=== PATIENT | female | born 1995 | race Caucasian/White ===

== ENCOUNTER 2018-03-21 17:41 | Emergency (ER) | payer OTHER ==
[2018-03-21] MEDS ORDERED: ONDANSETRON 4 MG/2 ML VIAL IVPB ONE (17:51)
[2018-03-21] MEDS ORDERED: SODIUM CHLORIDE 1,000 ML IV STA ×2 (17:51→22:14)
--- NOTE | 2018-03-21 17:51 | PDOC ---
Rapid Medical Evaluation Medical Evaluation: Allergies Allergy/AdvReac Type Severity Reaction Status Date / Time No Known Allergies Allergy Verified 02/18/16 06:00 I have performed a brief in-person evaluation of this patient. The patient presents with a chief complaint of: c/o upper abdominal pain x 1 week along with NBNB emesis. Went to [facility] a few days ago to get evaluated and was given Pepcid, without allevation of sxs. Denies diarrhea Pertinent physical exam findings: In NAD, abdomen soft, ND, NT I have ordered the following: Labs, IVF, zofran The patient will proceed to the ED for further evaluation. 03/21/18 17:49
[2018-03-21 17:53] VITALS: BP 121/65; PULSE 68; TEMP 98.2; BMI 31.8
[2018-03-21 19:47] LABS: BASO % 0.2 % (0-2.0); EOS % 0.7 % (0-4.5); HEMATOCRIT 42.2 % (32.4-45.2); HEMOGLOBIN 14.4 GM/dL (10.7-15.3); LYMPH % 11.9 % (8-40); MCH 27.5 pg (25.7-33.7); MCHC 34.1 g/dl (32.0-36.0); MEAN CELL VOLUME 80.5 fl (80-96); MEAN PLT VOLUME 10.2 fl (7.5-11.1); MONO % 5.8 % (3.8-10.2); NEUT % 81.4 % (42.8-82.8); PLATELET COUNT 225 K/MM3 (134-434); RBC 5.24 M/mm3 (3.60-5.2); RDW 14.6 % (11.6-15.6); WHITE BLOOD COUNT 9.3 K/mm3 (4.0-10.0)
[2018-03-21 20:18] LABS: ALBUMIN 4.1 g/dl (3.4-5.0); ALK PHOS 117 U/L (45-117); ANION GAP 5 MMOL/L (8-16); BILIRUBIN,TOTAL 0.8 mg/dL (0.2-1); BLOOD UREA NITROGEN 11 mg/dL (7-18); CALCIUM 8.6 mg/dL (8.5-10.1); CHLORIDE 105 mmol/L (98-107); CO2 26 mmol/L (21-32); CREATININE 0.6 mg/dL (0.55-1.3); GLUCOSE,RANDOM 86 mg/dL (74-106); POTASSIUM 4.6 mmol/L (3.5-5.1); SGOT/AST 32 U/L (15-37); SGPT/ALT 20 U/L (13-61); SODIUM 136 mmol/L (136-145); TOT PROT 7.8 g/dl (6.4-8.2)
[2018-03-21] MEDS ORDERED: ONDANSETRON 4 MG/2 ML VIAL ONE (20:41)
[2018-03-21 20:46] LABS: URINE APPEARANCE CLEAR; URINE BILIRUBIN NEGATIVE (<2.0 mg/dL); URINE COLOR DKYELLOW; URINE GLUCOSE (UA) NEGATIVE (NEGATIVE); URINE KETONE 1+ (NEGATIVE); URINE LEUK ESTERASE NEGATIVE (NEGATIVE); URINE NITRITE NEGATIVE (NEGATIVE); URINE PROTEIN 1+ (NEGATIVE); URINE UROBILINOGEN 4.0 E.U/dl mg/dL (0.2-1.0)
[2018-03-21 20:48] LABS: HCG,QUALITATIVE URINE Negative
[2018-03-21 20:52] LABS: EPI CELLS FEW /HPF (FEW); URINE MUCUS MANY
[2018-03-21] MEDS ORDERED: LIDOCAINE VISCOUS 2% ORAL/TOP 20 ML UNIT-DOSE CUP PO ONE (21:13)
[2018-03-21] MEDS ORDERED: MAG HYDROX/AL HYDROX/SIMETH 30 ML UNIT-DOSE CUP PO ONE (21:13)
[2018-03-21] MEDS ORDERED: PANTOPRAZOLE 40 MG TABLET (FP) PO ONE (21:14)
[2018-03-21] MEDS ORDERED: LIDOCAINE VISCOUS 2% ORAL/TOP 20 ML UNIT-DOSE CUP ONE (21:16)
[2018-03-21] MEDS ORDERED: PANTOPRAZOLE 40 MG TABLET (FP) ONE (21:16)
[2018-03-21] MEDS ORDERED: MAG HYDROX/AL HYDROX/SIMETH 30 ML UNIT-DOSE CUP ONE (21:16)
--- NOTE | 2018-03-21 21:19 | PDOC ---
History of Present Illness - General Chief Complaint: Pain, Acute Stated Complaint: UPPER ABDOMINAL PAIN Time Seen by Provider: 03/21/18 20:59 History Source: Patient Exam Limitations: No Limitations - History of Present Illness Travel History: No Initial Comments: 03/21/18 21:15 HISTORY OF PRESENT ILLNESS: This is a 23-year-old woman who denies significant medical history presents emergency department for evaluation of upper abdominal pain which worsens in the middle of the night and steadily improves throughout the day. Patient reports being seen at another hospital was given Pepcid with no relief of symptoms. Patient states currently her pain is 0/10 but when the pain comes on is 10/10. Patient describes the feeling as a tightness which slowly improves with movement and all laying in hot baths. She denies any aggravating factors. She denies nausea, vomiting, dysuria, hematuria, vaginal discharge, vaginal bleeding, constipation, diarrhea or rectal bleeding. No recent travel or sick contacts. PAST MEDICAL HISTORY: Denies past medical history SURGICAL HISTORY: Denies ALLERGIES: No known drug allergies REVIEW OF SYSTEMS General/Constitutional: Denies fever or chills. Denies weakness, weight change. HEENT: Denies change in vision. Denies ear pain or discharge. Denies sore throat. Cardiovascular: Denies chest pain or shortness of breath. Respiratory: Denies cough, wheezing, or hemoptysis. Gastrointestinal: Denies nausea, vomiting, diarrhea or constipation. Denies rectal bleeding. Upper abdominal pain. Genitourinary: Denies dysuria, frequency, or change in urination. Musculoskeletal: Denies joint or muscle swelling or pain. Denies neck or back pain. Skin and breasts: Denies rash or easy bruising. Neurologic: Denies headache, vertigo, loss of consciousness, or loss of sensation. Psychiatric: Denies depression or anxiety. Endocrine: Denies increased thirst. Denies abnormal weight change. Hematologic/Lymphatic: Denies anemia, easy bleeding, or history of blood clots. Allergic/Immunologic: Denies hives or skin allergy. Denies latex allergy. PHYSICAL EXAM General Appearance: Well-appearing, appropriately dressed. No apparent distress , no intoxication. HEENT: EOMI, PERRLA, normal ENT inspection, normal voice, TMs normal, pharynx normal. No conjunctival pallor. No photophobia, scleral icterus. Neck: Supple. Trachea midline. No tenderness, rigidity, carotid bruit, stridor , lymphadenopathy, or thyromegaly. Respiratory/Chest: Lungs CTAB. No shortness of breath, chest tenderness, respiratory distress, accessory muscle use. No crackles, rales, rhonchi, stridor , wheezing, dullness Cardiovascular: RRR. S1, S2. No JVD, murmur, bradycardia, tachycardia. Vascular Pulses: Dorsalis-Pedis (R): 2+, Dorsalis-Pedis (L): 2+ Gastrointestinal/Abdominal: Normal bowel sounds. Abdomen soft, non-distended. No tenderness or rebound tenderness. No organomegaly, pulsatile mass, guarding, hernia, hepatomegaly, splenomegaly. Lymphatic: No adenopathy, tenderness. Musculoskeletal/Extremities: Normal inspection. FROM of all extremities, normal capillary refill. Pelvis Stable. No CVA tenderness. No tenderness to extremities, pedal edema, swelling, erythema or deformity. Integumentary: Appropriate color, dry, warm. No cyanosis, erythema, jaundice or rash Neurologic: clinical engineer II-XII intact. Fully oriented, alert. Appropriate mood/affect. Motor strength 5/5. No appreciable EOM palsy, facial droop or sensory deficit. Past History - Past Medical History Allergies/Adverse Reactions: Allergies Allergy/AdvReac Type Severity Reaction Status Date / Time No Known Allergies Allergy Verified 03/21/18 17:49 Home Medications: Ambulatory Orders Vit/Iron Fum/Folic AC [ Tablet] 1 each PO DAILY 03/09/15 Iron 1 tab PO DAILY 02/18/16 Ibuprofen [Motrin -] 600 mg PO QID #28 tablet 02/19/16 Ondansetron [Zofran Odt -] 4 mg SL TID #21 od.tablet 03/21/18 Pantoprazole Sodium [Protonix -] 40 mg PO DAILY #30 tablet.ec 03/21/18 Asthma: No Cancer: No Cardiac Disorders: No COPD: No Diabetes: No HTN: No Seizures: No Thyroid Disease: No - Immunization History Immunization Up to Date: Yes - Suicide/Smoking/Psychosocial Hx Smoking History: Current every day smoker Have you smoked in the past 12 months: No Number of Cigarettes Smoked Daily: 3 Information on smoking cessation initiated: No Hx Alcohol Use: No Drug/Substance Use Hx: No Hx Substance Use Treatment: No *Physical Exam - Vital Signs Last Vital Signs Temp Pulse Resp BP Pulse Ox 98.2 F 68 16 121/65 97 03/21/18 17:50 03/21/18 17:50 03/21/18 17:50 03/21/18 17:50 03/21/18 17:50 Moderate Sedation - Procedure Monitoring Vital Signs: Procedure Monitoring Vital Signs Temperature 98.2 F 03/21/18 17:50 Pulse Rate 68 03/21/18 17:50 Respiratory Rate 16 03/21/18 17:50 Blood Pressure 121/65 03/21/18 17:50 O2 Sat by Pulse Oximetry (%) 97 03/21/18 17:50 ED Treatment Course - LABORATORY CBC & Chemistry Diagram: 03/21/18 19:33 03/21/18 19:33 - ADDITIONAL ORDERS Additional order review: Laboratory Results 03/21/18 03/21/18 19:33 19:33 Sodium 136 Potassium 4.6 Chloride 105 Carbon Dioxide 26 Anion Gap 5 L BUN 11 Creatinine 0.6 Creat Clearance w eGFR > 60 Random Glucose 86 Calcium 8.6 Total Bilirubin 0.8 AST 32 ALT 20 Alkaline Phosphatase 117 Total Protein 7.8 Albumin 4.1 Urine Color Dkyellow Urine Appearance Clear Urine pH 6.0 Ur Specific [place] 1.029 Urine Protein 1+ H Urine Glucose (UA) Negative Urine Ketones 1+ H Urine Blood Negative Urine Nitrite Negative Urine Bilirubin Negative Urine Urobilinogen 4.0 e.u/dl H Ur Leukocyte Esterase Negative Urine WBC (Auto) 7 Urine RBC (Auto) 4 Ur Epithelial Cells Few Urine Mucus Many Urine HCG, Qual Negative 03/21/18 19:33 RBC 5.24 H MCV 80.5 MCHC 34.1 RDW 14.6 D MPV 10.2 Neutrophils % 81.4 Lymphocytes % 11.9 D Monocytes % 5.8 Eosinophils % 0.7 Basophils % 0.2 - Medications Given in the ED: ED Medications Discontinued Medications Generic Name Dose Route Start Last Admin Trade Name Freq PRN Reason Stop Dose Admin Sodium Chloride 1,000 mls @ 1,000 mls/hr 03/21/18 17:51 03/21/18 20:46 Normal Saline - IV 03/21/18 18:50 1,000 mls/hr ASDIR STA Administration Ondansetron HCl 4 mg 03/21/18 17:51 03/21/18 20:46 Zofran Injection IVPB 03/21/18 17:52 4 mg ONCE ONE Administration Medical Decision Making - Medical Decision Making 03/21/18 21:18 A/P: 23-year-old female with upper abdominal pain for one week Lungs clear to auscultation bilaterally RRR. No murmur, rub or gallop noted Normoactive bowel sounds Abdomen soft nontender nondistended. No guarding noted No CVA tenderness I symptoms worsen at night while patient is lying down this is most likely a gastritis. Patient has had minimal relief from Pepcid. I will give the patient Maalox, Viscous Lidocaine and Protonix here reevaluate. Laboratory testing performed a rapid medical evaluation is unremarkable. 03/21/18 22:28 Patient has been unable to tolerate by mouth's and is having worsening pain at this time. Patient encouraged to stay for IV fluids and continued assessment but is refusing at this time. The patient insists on leaving the emergency dept and is signing out against medical advice. The patient understands the risks and complications that may result from the refusal of medical care and admission which includes cardiac arrest, severe infection, dehydration, myocardial infarction, arrhythmias, stroke, respiratory failure, electrolyte derangements, coma, pancreatitis, liver failure, bleeding, perforation, obstruction, intra abdominal infection, coma, severe disability and . The patient has the mental capacity of understanding the risks of refusing care and is capable of making an informed decision. The patient was instructed to return to the emergency department should she change her mind regarding medical care or should her condition worsen. The patient signed the Against Medical Advice form. *DC/Admit/Observation/Transfer Diagnosis at time of Disposition: Abdominal pain Qualifiers: Abdominal location: left upper quadrant Qualified Code(s): R10.12 - Left upper quadrant pain - Discharge Dispostion Disposition: AGAINST MEDICAL ADVICE Condition at time of disposition: Fair Decision to Admit order: No - Prescriptions Prescriptions: Ondansetron [Zofran Odt -] 4 mg SL TID #21 od.tablet Pantoprazole Sodium [Protonix -] 40 mg PO DAILY #30 tablet.ec - Referrals Referrals: Lencoh Pacheco [Primary Care Provider] - - Patient Instructions Additional Instructions: Rest, drink lots of fluids: Teas, water, soups Shannan andi, carbonated beverages for the bubbles May try peppermint teas Avoid heavy , spicy or fatty foods until symptoms have resolved Continue [id number] medications for symptomatic relief Tylenol or Motrin for fever and pain May use Zofran-one tablet dissolved on tongue as needed for nausea. May repeat times one every 8 hours Take Protonix 40mg daily. Follow up with your primary doctor next week. You are welcome to return to the ED at any time for continued evaluation. Followup with private physician in one to 2 days as needed Return to emergency department for worsened symptoms, fevers, dehydration - Post Discharge Activity
[2018-03-21] MEDS ORDERED: ONDANSETRON 4 MG/2 ML VIAL IVPUSH ONE (22:15)
[2018-03-21] MEDS ORDERED: FAMOTIDINE 20 MG/50 ML IVPB 20 MG/50 ML MG IVPB ONE (22:15)
== END 2018-03-21 22:35 | disposition left against medical advice (07) ==
LOC: JER 17:41
PROC: 3E033GC Introduction of Other Therapeutic Substance into Peripheral Vein, Percutaneous Approach (ICD-10-PCS; principal; 2018-03-21)
DX: R10.12 Left upper quadrant pain (principal)
CPT/HCPCS: 36415; 80053; 81003; 81015; 84703; 85025; 99282-25; J7030

== ENCOUNTER 2018-06-15 20:49 | Emergency (ER) | payer OTHER ==
[2018-06-15 20:57] VITALS: BP 108/60; PULSE 82; TEMP 98.4; BMI 36.4
[2018-06-15] MEDS ORDERED: KETOROLAC TROMETHAMINE 60 MG/2 ML VIAL IM ONE (21:33)
[2018-06-15] MEDS ORDERED: KETOROLAC TROMETHAMINE 60 MG/2 ML VIAL ONE (21:35)
--- NOTE | 2018-06-15 21:40 | PDOC ---
History of Present Illness - General Chief Complaint: Toothache Stated Complaint: RIGHT SIDE TOOTH PAIN Time Seen by Provider: 06/15/18 21:22 History Source: Patient Exam Limitations: Clinical Condition - History of Present Illness Initial Comments: 06/15/18 21:34 Patient with no significant past medical history present with complaint of pain and swelling to right side of lower tooth and gums. Patient reported having pain for 2 days now to right lower wisdom tooth and now started having swelling to the gums in the face. Denies fever, chills. Patient reported taking Motrin which helps with the pain a little bit but comes back. Timing/Duration: other (2 days) Past History - Past Medical History Allergies/Adverse Reactions: Allergies Allergy/AdvReac Type Severity Reaction Status Date / Time No Known Allergies Allergy Verified 03/21/18 17:49 Home Medications: Ambulatory Orders Vit/Iron Fum/Folic AC [ Tablet] 1 each PO DAILY 03/09/15 Iron 1 tab PO DAILY 02/18/16 Ibuprofen [Motrin -] 600 mg PO QID #28 tablet 02/19/16 Ondansetron [Zofran Odt -] 4 mg SL TID #21 od.tablet 03/21/18 Pantoprazole Sodium [Protonix -] 40 mg PO DAILY #30 tablet.ec 03/21/18 Amox-Tr/K Cl [Augmentin - 875Mg Tablet] 1 tab PO BID #14 tablet 06/15/18 Naproxen 500 mg PO BID PRN #20 tablet 06/15/18 Asthma: No Cancer: No Cardiac Disorders: No COPD: No Diabetes: No HTN: No Seizures: No Thyroid Disease: No - Immunization History Immunization Up to Date: Yes - Suicide/Smoking/Psychosocial Hx Smoking History: Current every day smoker Have you smoked in the past 12 months: No Number of Cigarettes Smoked Daily: 5 Information on smoking cessation initiated: Yes Hx Alcohol Use: No Drug/Substance Use Hx: No Hx Substance Use Treatment: No Review of Systems - Review of Systems Able to Perform ROS?: Yes Is the patient limited Bahamian proficient: No Constitutional: No: Chills, Fever HEENTM: Yes: Symptoms Reported, See HPI, Dental Problems. No: Eye Pain, Blurred Vision, Tearing, Recent change in vision, Double Vision, Cataracts, Ear Pain, Ocular Prothesis, Ear Discharge, Nose Pain, Nose Congestion, Tinnitus, Nose Bleeding, Hearing Loss, Throat Pain, Throat Swelling, Mouth Pain, Difficulty Swallowing, Mouth Swelling, Other Respiratory: No: Symptoms reported, See HPI, Cough, Orthopnea, Shortness of Breath, SOB with Exertion, SOB at Rest, Stridor, Wheezing, Productive cough, Hemoptysis, Other Cardiac (ROS): No: Symptoms Reported, See HPI, Chest Pain, Edema, Irregular Heart Rate, Lightheadedness, Palpitations, Syncope, Chest Tightness, Other ABD/GI: No: Nausea, Vomiting All Other Systems: Reviewed and Negative *Physical Exam - Vital Signs Last Vital Signs Temp Pulse Resp BP Pulse Ox 98.4 F 82 20 108/60 98 06/15/18 20:51 06/15/18 20:51 06/15/18 20:51 06/15/18 20:51 06/15/18 20:51 - Physical Exam Comments: 06/15/18 21:36 GENERAL: Well developed, well nourished. Awake and alert. No acute distress. HEENT: Mild tenderness to periodontal region of right lower premolars. Mild swelling to right side of face. No erythema to face. Normocephalic, atraumatic. PERRLA, EOMI. No conjunctival pallor. Sclera are non-icteric. Moist mucous membranes. NECK: Supple. Full ROM. CARDIOVASCULAR: Regular rate and rhythm. No murmurs, rubs, or gallops. Distal pulses are 2+ and symmetric. PULMONARY: No evidence of respiratory distress. Lungs clear to auscultation bilaterally. No wheezing, rales or rhonchi. ABDOMINAL: Soft. Non-tender. Non-distended. No rebound or guarding. No organomegaly. Normoactive bowel sounds. MUSCULOSKELETAL Normal range of motion at all joints. SKIN: Warm and dry. No erythema to skin of face. No evidence of cellulitis of face. Normal capillary refill. NEUROLOGICAL: Alert, awake, appropriate. Gait is normal without ataxia. PSYCHIATRIC: Cooperative. Good eye contact. Appropriate mood General Appearance: Yes: Nourished, Appropriately Dressed, Mild Distress Moderate Sedation - Procedure Monitoring Vital Signs: Procedure Monitoring Vital Signs Temperature 98.4 F 06/15/18 20:51 Pulse Rate 82 06/15/18 20:51 Respiratory Rate 20 06/15/18 20:51 Blood Pressure 108/60 06/15/18 20:51 O2 Sat by Pulse Oximetry (%) 98 06/15/18 20:51 Medical Decision Making - Medical Decision Making 06/15/18 21:37 Patient presented with complaint of 2 day history of right lower wisdom tooth pain and swelling to gums. Exam significant for tenderness to right back premolars with mild periodontal swelling. No evidence of cellulitis of face. Patient is stable for discharge on NSAIDs with dental follow-up. Toradol 60 mg IM given for pain *DC/Admit/Observation/Transfer Diagnosis at time of Disposition: Periodontitis, Pain in tooth - Discharge Dispostion Disposition: HOME Condition at time of disposition: Stable Decision to Admit order: No - Prescriptions Prescriptions: Amox-Tr/K Cl [Augmentin - 875Mg Tablet] 1 tab PO BID #14 tablet Naproxen 500 mg PO BID PRN #20 tablet PRN Reason: pain - Referrals Referrals: Lencho Pacheco [Primary Care Provider] - - Patient Instructions Printed Discharge Instructions: DI for Dental Pain Additional Instructions: Take prescribed medication as prescribed. Follow-up with dentist as soon as possible the next 2 days. - Post Discharge Activity
== END 2018-06-15 21:54 | disposition home or self-care (01) ==
LOC: JER 20:49 → JERFT 20:49
PROC: 3E0233Z Introduction of Anti-inflammatory into Muscle, Percutaneous Approach (ICD-10-PCS; principal; 2018-06-15)
DX: K05.30 Chronic periodontitis, unspecified (principal)
CPT/HCPCS: 96372; 99281-25

== ENCOUNTER 2018-11-03 11:20 | Emergency (ER) | payer OTHER ==
[2018-11-03 11:30] VITALS: TEMP 98.3; BMI 37.2
[2018-11-03] MEDS ORDERED: MAG HYDROX/AL HYDROX/SIMETH 30 ML UNIT-DOSE CUP PO ONE (11:46)
[2018-11-03] MEDS ORDERED: ONDANSETRON *ODT* 4 MG TABLET SL ONE (11:46)
[2018-11-03] MEDS ORDERED: ONDANSETRON *ODT* 4 MG TABLET ONE ×2 (12:03→12:34)
[2018-11-03] MEDS ORDERED: MAG HYDROX/AL HYDROX/SIMETH 30 ML UNIT-DOSE CUP ONE ×2 (12:03→12:34)
--- NOTE | 2018-11-03 12:21 | PDOC ---
History of Present Illness - General History Source: Patient Exam Limitations: Clinical Condition - History of Present Illness Initial Comments: 11/03/18 12:16 Patient with no significant past medical history LMP October 22 present with complaint of one-week history of epigastric pain and vomiting. Patient reported vomiting 4 times a day. Patient was seen in [facility] yesterday for same symptoms and reported blood work done was negative but was supposed to be sent home on medication but the medication was never sent. Patient reported no imaging was done in [facility] yesterday. Denies fever, chills, diarrhea, constipation. Patient reported epigastric pain as burning sensation epigastric region. Denies vaginal bleeding, urinary symptoms or any other symptoms Timing/Duration: 1 week <Igor Walton - Last Filed: 11/03/18 13:21> <Karina Grady - Last Filed: 11/08/18 07:30> - General Chief Complaint: Nausea/Vomiting Stated Complaint: NAUSEA / VOMITTING Time Seen by Provider: 11/03/18 11:32 Past History - Past Medical History Asthma: No Cancer: No Cardiac Disorders: No COPD: No Diabetes: No HTN: No Seizures: No Thyroid Disease: No - Immunization History Immunization Up to Date: Yes - Suicide/Smoking/Psychosocial Hx Smoking History: Current every day smoker Have you smoked in the past 12 months: No Number of Cigarettes Smoked Daily: 4 Information on smoking cessation initiated: No Hx Alcohol Use: No Drug/Substance Use Hx: No Hx Substance Use Treatment: No <Igor Walton - Last Filed: 11/03/18 13:21> <Karina Grady - Last Filed: 11/08/18 07:30> - Past Medical History Allergies/Adverse Reactions: Allergies Allergy/AdvReac Type Severity Reaction Status Date / Time No Known Allergies Allergy Verified 11/03/18 11:25 Home Medications: Ambulatory Orders Ondansetron [Zofran Odt -] 4 mg SL TID #21 od.tablet 11/03/18 Ondansetron [Zofran Odt -] 4 mg SL TID PRN #21 od.tablet 11/03/18 Pantoprazole Sodium [Protonix -] 40 mg PO DAILY #7 tablet.ec 11/03/18 Pantoprazole Sodium [Protonix] 40 mg PO DAILY #10 tablet. 11/03/18 Review of Systems - Review of Systems Able to Perform ROS?: Yes Is the patient limited Burundian proficient: No Constitutional: No: Chills, Fever, Malaise HEENTM: No: Symptoms Reported, Throat Pain, Difficulty Swallowing Respiratory: No: Symptoms reported Cardiac (ROS): No: Symptoms Reported ABD/GI: Yes: Symptoms Reported, See HPI, Nausea, Vomiting, Abdominal cramping ( epigastric). No: Abd. Pain w/ defecation, Blood Streaked Bowels, Constipated, Diarrhea, Difficulty Swallowing, Poor Appetite, Poor Fluid Intake, Rectal Bleeding : No: Symptoms Reported, Burning, Discharge, Frequency, Urgency Neurological: No: Symptoms reported, Headache, Weakness, Dizziness All Other Systems: Reviewed and Negative <Igor Walton - Last Filed: 11/03/18 13:21> *Physical Exam - Vital Signs Last Vital Signs Temp Pulse Resp BP Pulse Ox 98.3 F 78 18 110/53 L 98 11/03/18 11:21 11/03/18 11:21 11/03/18 11:21 11/03/18 11:21 11/03/18 11:21 - Physical Exam Comments: 11/03/18 12:19 YGENERAL: Well developed, well nourished. Awake and alert. No acute distress. HEENT: Normocephalic, atraumatic. PERRLA, EOMI. No conjunctival pallor. Sclera are non-icteric. Moist mucous membranes. Oropharynx is clear. NECK: Supple. Full ROM. CARDIOVASCULAR: Regular rate and rhythm. No murmurs, rubs, or gallops. Distal pulses are 2+ and symmetric. PULMONARY: No evidence of respiratory distress. Lungs clear to auscultation bilaterally. No wheezing, rales or rhonchi. ABDOMINAL: Soft. Mild epigastric tenderness on deep palpation. Non-distended. No rebound or guarding. No organomegaly. Normoactive bowel sounds. MUSCULOSKELETAL Normal range of motion at all joints. SKIN: Warm and dry. Normal capillary refill. No rashes. NEUROLOGICAL: Alert, awake, appropriate. Gait is normal without ataxia. PSYCHIATRIC: Cooperative. Good eye contact. Appropriate mood General Appearance: Yes: Nourished, Appropriately Dressed. No: Apparent Distress <Igor Walton - Last Filed: 11/03/18 13:21> - Vital Signs Last Vital Signs Temp Pulse Resp BP Pulse Ox 98.3 F 72 18 112/62 100 11/03/18 13:36 11/03/18 13:36 11/03/18 13:36 11/03/18 13:36 11/03/18 13:36 <Karina Grady - Last Filed: 11/08/18 07:30> ED Treatment Course - LABORATORY CBC & Chemistry Diagram: 11/03/18 12:00 11/03/18 12:00 - RADIOLOGY Radiology Studies Ordered: Category Date Time Status ABDOMEN US -LIMITED [US] Stat Ultrasound 11/03/18 11:48 Ordered <IsabelleIgor Bridges - Last Filed: 11/03/18 13:21> - LABORATORY CBC & Chemistry Diagram: 11/03/18 12:00 11/03/18 12:00 - ADDITIONAL ORDERS Additional order review: 11/03/18 12:00 RBC 5.15 MCV 81.2 MCHC 32.8 RDW 14.1 MPV 9.9 Neutrophils % 76.5 Lymphocytes % 16.5 D Monocytes % 6.0 Eosinophils % 0.4 Basophils % 0.6 - Medications Given in the ED: ED Medications Discontinued Medications Generic Name Dose Route Start Last Admin Trade Name Anuragq PRN Reason Stop Dose Admin Acetaminophen 975 mg 11/03/18 13:25 11/03/18 13:35 Tylenol - PO 11/03/18 13:26 975 mg ONCE ONE Administration Al Hydroxide/Mg Hydroxide 30 ml 11/03/18 11:46 11/03/18 12:45 Mylanta Oral Suspension - PO 11/03/18 11:47 30 ml ONCE ONE Administration Ondansetron HCl 4 mg 11/03/18 11:46 11/03/18 12:45 Zofran Odt - SL 11/03/18 11:47 4 mg ONCE ONE Administration Pantoprazole Sodium 40 mg 11/03/18 12:57 11/03/18 13:11 Protonix - PO 11/03/18 12:58 40 mg ONCE ONE Administration <Karina Grady - Last Filed: 11/08/18 07:30> Medical Decision Making - Medical Decision Making 11/03/18 12:17 Patient with no significant past medical history LMP October 22 present with complaint of one-week history of epigastric pain and vomiting. Patient reported vomiting 4 times a day. Patient was seen in [facility] yesterday for same symptoms and reported blood work done was negative but was supposed to be sent home on medication but the medication was never sent. Patient reported no imaging was done in [facility] yesterday. Denies fever, chills, diarrhea, constipation. Patient reported epigastric pain as burning sensation epigastric region. Denies vaginal bleeding, urinary symptoms or any other symptoms Exam significant for mild epigastric tenderness to deep palpation without guarding or rebound. Otherwise normal abdominal exam. Normal cardio and lung exam. Patient symptoms likely GERD versus cholecystitis versus gastritis. CBC, CMP and lipase labs ordered. UA urine hCG labs ordered. Abdominal ultrasound ordered to evaluate for cholecystitis. Zofran 4 mg sublingual ordered for nausea and Maalox 30 mL by mouth ordered for abdominal discomfort. Treat based on lab and imaging results 11/03/18 13:17 CBC and chemistry lab are unremarkable. Urine hCG negative. Abdominal ultrasound shows no acute pathology. Patient symptoms likely gastritis. Patient is stable for outpatient management on Zofran when necessary for vomiting and Protonix for gastritis with GI follow-up. Plan discussed with patient and patient agrees with plan and will follow up with GI <IsabelleIgor negrete - Last Filed: 11/03/18 13:21> *DC/Admit/Observation/Transfer - Discharge Dispostion Decision to Admit order: No <Igor Walton - Last Filed: 11/03/18 13:21> - Attestations Physician Attestion: I reviewed the case with the mid-level practitioner and agree with the mid- level practitioner's assessment, diagnosis and disposition. <Karina Grady - Last Filed: 11/08/18 07:30> Diagnosis at time of Disposition: Abdominal pain Qualifiers: Abdominal location: epigastric Qualified Code(s): R10.13 - Epigastric pain GERD (gastroesophageal reflux disease) Qualifiers: Esophagitis presence: without esophagitis Qualified Code(s): K21.9 - Gastro- esophageal reflux disease without esophagitis Nausea & vomiting Qualifiers: Vomiting type: unspecified Vomiting Intractability: non-intractable Qualified Code(s): R11.2 - Nausea with vomiting, unspecified - Discharge Dispostion Disposition: HOME Condition at time of disposition: Stable - Prescriptions Prescriptions: Ondansetron [Zofran Odt -] 4 mg SL TID PRN #21 od.tablet PRN Reason: nausea Ondansetron [Zofran Odt -] 4 mg SL TID #21 od.tablet Pantoprazole Sodium [Protonix -] 40 mg PO DAILY #7 tablet.ec Pantoprazole Sodium [Protonix] 40 mg PO DAILY #10 tablet.dr - Referrals Referrals: Hieu Lu DO [Staff Physician] - - Patient Instructions Printed Discharge Instructions: [place] Diet, DI for Gastritis Additional Instructions: Your lab and abdominal ultrasound is normal. Your symptoms likely caused by acid buildup. Take prescribed medication as prescribed. Increase fluid intake. Follow-up referred GI doctor if no improvement in 2 days
[2018-11-03 12:34] LABS: BASO % 0.6 % (0-2.0); EOS % 0.4 % (0-4.5); HEMATOCRIT 41.9 % (32.4-45.2); HEMOGLOBIN 13.7 GM/dL (10.7-15.3); LYMPH % 16.5 % (8-40); MCH 26.6 pg (25.7-33.7); MCHC 32.8 g/dl (32.0-36.0); MEAN CELL VOLUME 81.2 fl (80-96); MEAN PLT VOLUME 9.9 fl (7.5-11.1); NEUT % 76.5 % (42.8-82.8); PLATELET COUNT 238 K/MM3 (134-434); RBC 5.15 M/mm3 (3.60-5.2); RDW 14.1 % (11.6-15.6); WHITE BLOOD COUNT 10.4 K/mm3 (4.0-10.0)
[2018-11-03] MEDS ORDERED: PANTOPRAZOLE 40 MG TABLET (FP) PO ONE (12:57)
[2018-11-03 13:02] LABS: ALBUMIN 3.8 g/dl (3.4-5.0); BILIRUBIN,TOTAL 0.4 mg/dL (0.2-1); BLOOD UREA NITROGEN 10.6 mg/dL (7-18); CALCIUM 9.1 mg/dL (8.5-10.1); CREATININE 0.6 mg/dL (0.55-1.3); POTASSIUM 3.9 mmol/L (3.5-5.1); TOT PROT 7.6 g/dl (6.4-8.2)
[2018-11-03] MEDS ORDERED: PANTOPRAZOLE 40 MG TABLET (FP) ONE (13:08)
[2018-11-03] MEDS ORDERED: ACETAMINOPHEN 325 MG TABLET (FP) PO ONE (13:25)
[2018-11-03] MEDS ORDERED: ACETAMINOPHEN 325 MG TABLET (FP) ONE (13:31)
[2018-11-03 13:37] VITALS: BP 112/62; PULSE 72
== END 2018-11-03 13:37 | disposition home or self-care (01) ==
LOC: JER 11:20
DX: K21.9 Gastro-esophageal reflux disease without esophagitis (principal)
CPT/HCPCS: 36415; 76705-TC; 80053; 83690; 84703; 85025; 99282-25; Q0162

== ENCOUNTER 2019-04-16 11:44 | Emergency (ER) | payer OTHER ==
[2019-04-16 12:22] VITALS: BMI 36.0
--- NOTE | 2019-04-16 12:28 | PDOC ---
History of Present Illness - General Chief Complaint: Pain Stated Complaint: Pain Time Seen by Provider: 04/16/19 12:27 - History of Present Illness Initial Comments: 04/16/19 12:28 CHIEF COMPLAINT: abd pain HISTORY OF PRESENT ILLNESS: 24 yo F presents to ED with epigastric/RUQ pain and vomiting x 3 days. Patient reports she has not been able to tolerate any po for the past 3 days and has had persistent vomiting with some diarrhea yesterday. Patient denies any fever but reports unbearable pain. No recent travel or sick contacts. PAST MEDICAL HISTORY: Denies past medical history FAMILY HISTORY: Denies SOCIAL HISTORY: Denies tobacco, alcohol, illicit drug use. SURGICAL HISTORY: ALLERGIES: No known drug allergies REVIEW OF SYSTEMS General/Constitutional: Denies fever or chills. Denies weakness, weight change. HEENT: Denies change in vision. Denies ear pain or discharge. Denies sore throat. Cardiovascular: Denies chest pain or shortness of breath. Respiratory: Denies cough, wheezing, or hemoptysis. Gastrointestinal: Abdominal pain and vomiting x 3 days. Denies rectal bleeding. Genitourinary: Denies dysuria, frequency, or change in urination. Musculoskeletal: Denies joint or muscle swelling or pain. Denies neck or back pain. Skin and breasts: Denies rash or easy bruising. Neurologic: Denies headache, vertigo, loss of consciousness, or loss of sensation. Psychiatric: Denies depression or anxiety. PHYSICAL EXAM General Appearance: Well-appearing, appropriately dressed. No apparent distress , no intoxication. HEENT: EOMI, PERRLA, normal ENT inspection, normal voice, TMs normal, pharynx normal. No conjunctival pallor. No photophobia, scleral icterus. Neck: Supple. Trachea midline. No tenderness, rigidity, carotid bruit, stridor , lymphadenopathy, or thyromegaly. Respiratory/Chest: Lungs CTAB. No shortness of breath, chest tenderness, respiratory distress, accessory muscle use. No crackles, rales, rhonchi, stridor , wheezing, dullness Cardiovascular: RRR. S1, S2. No JVD, murmur, bradycardia, tachycardia. Vascular Pulses: Dorsalis-Pedis (R): 2+, Dorsalis-Pedis (L): 2+ Gastrointestinal/Abdominal: Marked epigastric/RUQ tenderness with guarding, + Davies's sign. No organomegaly, pulsatile mass, guarding, hernia, hepatomegaly , splenomegaly. Lymphatic: No adenopathy, tenderness. Musculoskeletal/Extremities: Normal inspection. FROM of all extremities, normal capillary refill. Pelvis Stable. No CVA tenderness. No tenderness to extremities, pedal edema, swelling, erythema or deformity. Integumentary: Appropriate color, dry, warm. No cyanosis, erythema, jaundice or rash Neurologic: fire eater II-XII intact. Fully oriented, alert. Appropriate mood/affect. Motor strength 5/5. No appreciable EOM palsy, facial droop or sensory deficit. 04/16/19 12:54 Past History - Past Medical History Allergies/Adverse Reactions: Allergies Allergy/AdvReac Type Severity Reaction Status Date / Time No Known Allergies Allergy Verified 04/16/19 12:27 Home Medications: Ambulatory Orders Famotidine [Pepcid] 20 mg PO DAILY #10 tablet 04/16/19 Ondansetron [Zofran *Odt*] 4 mg SL TID PRN #21 od.tablet 04/16/19 Asthma: No Cancer: No Cardiac Disorders: No COPD: No Diabetes: No HTN: No Seizures: No Thyroid Disease: No - Immunization History Immunization Up to Date: Yes - Psycho Social/Smoking Cessation Hx Smoking History: Current every day smoker Have you smoked in the past 12 months: Yes Number of Cigarettes Smoked Daily: 4 Information on smoking cessation initiated: Yes Hx Alcohol Use: No Drug/Substance Use Hx: No Hx Substance Use Treatment: No *Physical Exam - Vital Signs Last Vital Signs Temp Pulse Resp BP Pulse Ox 97.9 F 79 17 114/48 L 98 04/16/19 12:18 04/16/19 12:18 04/16/19 12:18 04/16/19 12:18 04/16/19 12:18 ED Treatment Course - LABORATORY CBC & Chemistry Diagram: 04/16/19 12:45 04/16/19 12:45 Medical Decision Making - Medical Decision Making 04/16/19 12:56 24 yo F presents to ED with epigastric/RUQ pain and vomiting x 3 days. -labs -zofran, toradol, pepcid 04/16/19 13:52 labs unremarkable. US unremarkable. Patient reports pain is returning, will order IV Tylenol and CT. 04/16/19 15:09 patient reevaluated after Tylenol administration, states she is feeling better and refuses CT, requesting to go home. Clinical presentation consistent with acute viral gastroenteritis. Will dc home with antiemetics. Advised patient to take medication as prescribed and follow up with PCP within the next week. Advised patient of signs and symptoms for return to ED. Patient verbalized understanding and agrees to plan. Discharge - Discharge Information Problems reviewed: Yes Clinical Impression/Diagnosis: Gastroenteritis Condition: Stable Disposition: HOME - Admission No - Additional Discharge Information Prescriptions: Famotidine [Pepcid] 20 mg PO DAILY #10 tablet Ondansetron [Zofran *Odt*] 4 mg SL TID PRN #21 od.tablet PRN Reason: Nausea And/Or Vomiting - Follow up/Referral - Patient Discharge Instructions Patient Printed Discharge Instructions: DI for Viral Gastroenteritis -- Adult - Post Discharge Activity Work/Back to School Note: Back to Work
[2019-04-16] MEDS ORDERED: FAMOTIDINE 20 MG/50 ML IVPB 20 MG/50 ML MG IVPB ONE ×2 (12:33→12:46)
[2019-04-16] MEDS ORDERED: KETOROLAC TROMETHAMINE 15 MG/ML VIAL IVPUSH ONE (12:33)
[2019-04-16] MEDS ORDERED: ONDANSETRON 4 MG/2 ML VIAL IVPUSH ONE (12:34)
[2019-04-16] MEDS ORDERED: KETOROLAC TROMETHAMINE 15 MG/ML VIAL ONE (12:45)
[2019-04-16] MEDS ORDERED: ONDANSETRON 4 MG/2 ML VIAL ONE (12:46)
[2019-04-16 12:53] LABS: BASO % 0.6 % (0-2.0); EOS % 1.1 % (0-4.5); HEMATOCRIT 39.7 % (32.4-45.2); HEMOGLOBIN 13.2 GM/dL (10.7-15.3); LYMPH % 20.7 % (8-40); MCH 26.9 pg (25.7-33.7); MCHC 33.2 g/dl (32.0-36.0); MEAN CELL VOLUME 80.9 fl (80-96); MEAN PLT VOLUME 9.7 fl (7.5-11.1); MONO % 6.1 % (3.8-10.2); NEUT % 71.5 % (42.8-82.8); PLATELET COUNT 245 K/MM3 (134-434); RDW 14.4 % (11.6-15.6); WHITE BLOOD COUNT 10.2 K/mm3 (4.0-10.0)
[2019-04-16 13:28] LABS: ALBUMIN 3.7 g/dl (3.4-5.0); BILIRUBIN,TOTAL 0.4 mg/dL (0.2-1); BLOOD UREA NITROGEN 6.4 mg/dL (7-18); CALCIUM 8.7 mg/dL (8.5-10.1); CREATININE 0.6 mg/dL (0.55-1.3); POTASSIUM 3.9 mmol/L (3.5-5.1); TOT PROT 7.2 g/dl (6.4-8.2)
[2019-04-16 13:36] LABS: HYALINE CASTS 0 /lpf (0-8); PH,URINE >= 9.0 (5.0-8.0); URINE APPEARANCE CLEAR; URINE BACTERIA 60.9 /hpf (NEGATIVE); URINE BILIRUBIN NEGATIVE (NEGATIVE); URINE COLOR YELLOW; URINE GLUCOSE (UA) NEGATIVE (NEGATIVE); URINE KETONE TRACE (NEGATIVE); URINE LEUK ESTERASE NEGATIVE (NEGATIVE); URINE NITRITE NEGATIVE (NEGATIVE); URINE PROTEIN NEGATIVE (NEGATIVE); URINE RBC 4 /hpf (0-4); URINE WBC 1 /hpf (0-5)
[2019-04-16] MEDS ORDERED: ACETAMINOPHEN INJECTION 100 ML IVPB ONE (14:03)
[2019-04-16] MEDS ORDERED: ACETAMINOPHEN 1000 MG/100 ML VIAL (NON FORMULARY) IVPB ONE (14:05)
[2019-04-16 15:09] VITALS: BP 113/54; PULSE 70; TEMP 98
== END 2019-04-16 15:09 | disposition home or self-care (01) ==
LOC: JER 11:44
PROC: 3E033NZ Introduction of Analgesics, Hypnotics, Sedatives into Peripheral Vein, Percutaneous Approach (ICD-10-PCS; principal; 2019-04-16)
PROC: 3E033GC Introduction of Other Therapeutic Substance into Peripheral Vein, Percutaneous Approach (ICD-10-PCS; 2019-04-16)
PROC: 3E0333Z Introduction of Anti-inflammatory into Peripheral Vein, Percutaneous Approach (ICD-10-PCS; 2019-04-16)
DX: K52.9 Noninfective gastroenteritis and colitis, unspecified (principal); F17.210 Nicotine dependence, cigarettes, uncomplicated
CPT/HCPCS: 36415; 76705-TC; 80053; 81003; 83690; 84703; 85025; 87077; 87086; 96365; 96375; 99284-25; J0131

== ENCOUNTER 2019-11-10 01:13 | Emergency (ER) | payer OTHER ==
[2019-11-10 01:38] VITALS: BMI 33.7
[2019-11-10] MEDS ORDERED: AMOX TR/POT CLAV 875MG/125MG TABLETS (FP) PO ONE (01:56)
--- NOTE | 2019-11-10 02:01 | PDOC ---
Attending Attestation - Resident Resident Name: Karina Hernandez - ED Attending Attestation I have performed the following: I have examined & evaluated the patient, The case was reviewed & discussed with the resident, I agree w/resident's findings & plan - HPI HPI: 11/10/19 01:59 Pt comes with hidradenitis suppuritiva. - Physicial Exam PE: 11/10/19 02:00 Agree with resident exam 11/10/19 02:22 Pt has nothing that can be I+D'd at this time. SHe has no surrounding cellulitis and she has no lymphangitic streaking. Pt has tenderness in the left axilla. Pthas FROM of the arm. She has no other foci of infection - Medical Decision Making 11/10/19 02:23 Home with augmentin BID x 10 days Pt will be given days off. She has not been to a surgeon because nobody takes her insurance. We recommend she calls the [facility] and find out which gen surg clinics will service her. Pt also referred to our clinic. Pt advised to stop shaving her armpits and using deodorant thereafter, thereby sealing in bacteria. Discharge - Discharge Information Problems reviewed: Yes Clinical Impression/Diagnosis: Hidradenitis suppurativa of left axilla Condition: Stable Disposition: HOME - Additional Discharge Information Prescriptions: Amoxicillin/Potassium Clav [Augmentin 875-125 Tablet] 1 each PO BID #20 tablet - Follow up/Referral Referrals: [facility] [place] [Provider Group] - Patient Discharge Instructions Patient Printed Discharge Instructions: Hidradenitis Suppurativa, DI for Skin Abscess Additional Instructions: You have been seen for your abscess. Apply warm compresses. Take tylenol or ibuprofen for pain as directed on bottle. Take Augmentin antibiotics 875mg twice a day for 10 days (prescription sent to your pharmacy). We have given you a referral to our primary care clinic. Call their office in the morning to make an appointment to set up care and get a referral to a surgeon that works with your insurance. Return to the ED immediately for any new or concerning symptoms including fever, vomiting, or red streaks extending from the abscess. - Post Discharge Activity Work/Back to School Note: Back to Work
--- NOTE | 2019-11-10 02:01 | PDOC ---
History of Present Illness - General Chief Complaint: Abscess Boil Stated Complaint: ABSCESS LEFT ARM Time Seen by Provider: 11/10/19 01:41 Past History - Medical History Allergies/Adverse Reactions: Allergies Allergy/AdvReac Type Severity Reaction Status Date / Time No Known Allergies Allergy Verified 11/10/19 01:38 Home Medications: Ambulatory Orders Famotidine [Pepcid] 20 mg PO DAILY #10 tablet 04/16/19 Ondansetron [Zofran *Odt*] 4 mg SL TID PRN #21 od.tablet 04/16/19 Amoxicillin/Potassium Clav [Augmentin 875-125 Tablet] 1 each PO BID #20 tablet 11/10/19 Asthma: No Cancer: No Cardiac Disorders: No COPD: No Diabetes: No HTN: No Seizures: No Thyroid Disease: No - Reproductive History Is Patient Now?: No - Immunization History Immunization Up to Date: Yes - Psycho-Social/Smoking History Smoking History: Never smoked Have you smoked in the past 12 months: No Number of Cigarettes Smoked Daily: 4 Information on smoking cessation initiated: No 'Breaking Loose' booklet given: 04/16/19 - Substance Abuse Hx (Audit-C & DAST Scrn) How often the patient has a drink containing alcohol: Never Score: In Men: 4 or > Positive; In Women: 3 or > Positive: 0 Screen Result (Pos requires Nsg. Audit-10AR): Negative In the last yr the pt used illegal drug/Rx for NonMed reason: No Score: Yes response is considered Positive: 0 Screen Result (Positive result requires Nsg. DAST-10): Negative *Physical Exam - Vital Signs Last Vital Signs Temp Pulse Resp BP Pulse Ox 98.6 F 65 16 104/52 L 100 11/10/19 01:34 11/10/19 01:34 11/10/19 01:34 11/10/19 01:34 11/10/19 01:34 Medical Decision Making - Medical Decision Making 11/10/19 01:55 HPI: 24yo F hx recurrent hideradenitis suppuritive/L axilla abscesses (always resolve with abx and warm compresses, last 1mo ago, hasn't been to surgeon yet due to insurance issues) presents with L axilla abscess at same location enlarging x2 days despite warm compresses. Denies erythema, drainage, bleeding, N/V, F/C, numbness/tingling. ROS: Constitutional: Negative for chills, fever, fatigue, diaphoresis. HENT: Negative for sore throat, rhinorrhea, congestion. Eyes: Negative for visual disturbance. Respiratory: Negative for shortness of breath, cough, and wheezing. Cardiovascular: Negative for chest pain, palpitations, and leg swelling. Gastrointestinal: Negative for abdominal pain, blood in stool, constipation, diarrhea, nausea, and vomiting. Genitourinary: Negative for dysuria, flank pain, and hematuria. Musculoskeletal: Negative for myalgias, back pain, and neck pain. Skin: Positive for L axilla abscess. Neurological: Negative for light-headedness, dizziness, vertigo, syncope, weakness, numbness and headaches. Psychiatric/Behavioral: Negative for behavioral problems and confusion. PE: Gen: Alert, NAD, comfortable-appearing. HEENT: PERRL, EOMI, MMM, NCAT. No conjunctival pallor. Sclera are non-icteric. CV: Regular rate and rhythm. No murmurs, rubs, or gallops. PULM: No resp distress. CTAB, no wheezes, rales, or rhonchi. ABD: soft, NT/ND, no rebound tenderness or guarding, no CVA tenderness. MSK: No bony deformities. 2+ pulses in all extremities. NEURO: AAOx3. PERRL. No gross CN deficits. Strength and sensation grossly intact throughout. Normal gait. EXTREMITIES: No cyanosis. No clubbing. No edema. Full AROM of L shoulder PSYCH: Normal mood and thought pattern. SKIN: Warm and dry. Normal capillary refill. No jaundice. Tender 2"x1" hard tender lesion in L axilla with three <1cm overlying fluctuant abscesses. MDM: 24yo F hx recurrent hidradenitis suppuritive/L axilla abscesses (always resolve with abx and warm compresses, last 1mo ago, hasn't been to surgeon yet due to insurance issues) presents with recurrent L hidradenitis suppuritiva. Hemodynamically stable, afebrile. No cellulitis, lymphangitic streaking, or systemic sx. No indication for emergent I&D at this time - refer to surgery. -Surgery referral -Pain management -D/c home w/augmentin and referral to [facility] for surgery Discharge - Discharge Information Problems reviewed: Yes Clinical Impression/Diagnosis: Hidradenitis suppurativa of left axilla Condition: Stable Disposition: HOME - Admission No - Additional Discharge Information Prescriptions: Amoxicillin/Potassium Clav [Augmentin 875-125 Tablet] 1 each PO BID #20 tablet - Follow up/Referral Referrals: [facility] [Provider Group] - Patient Discharge Instructions Patient Printed Discharge Instructions: Hidradenitis Suppurativa, DI for Skin Abscess Additional Instructions: You have been seen for your abscess. Apply warm compresses. Take tylenol or ibuprofen for pain as directed on bottle. Take Augmentin antibiotics 875mg twice a day for 10 days (prescription sent to your pharmacy). We have given you a referral to our primary care clinic. Call their office in the morning to make an appointment to set up care and get a referral to a surgeon that works with your insurance. Return to the ED immediately for any new or concerning symptoms including fever, vomiting, or red streaks extending from the abscess. - Post Discharge Activity Work/Back to School Note: Back to Work
[2019-11-10] MEDS ORDERED: AMOX TR/POT CLAV 875MG/125MG TABLETS (FP) ONE (02:11)
[2019-11-10 02:23] VITALS: BP 112/68; PULSE 77; TEMP 98.4
== END 2019-11-10 02:27 | disposition home or self-care (01) ==
LOC: JER 01:13
DX: L73.2 Hidradenitis suppurativa (principal)
CPT/HCPCS: 99283-25

== ENCOUNTER 2019-11-18 07:40 | Day surgery (SDC) | payer OTHER ==
[2019-11-18] MEDS ORDERED: LACTATED RINGERS SOLUTION 1000 ML INFUS.BAG IV ONE (08:09)
--- NOTE | 2019-11-18 08:44 | PDOC ---
History of Present Illness - General Chief Complaint: Pain Stated Complaint: ABD PAIN Time Seen by Provider: 11/18/19 07:48 - History of Present Illness Initial Comments: 11/18/19 08:43 24yo F with a PMH of recurrent hidradenitis suppurativa p/w with one hour of acute right lower abdominal/pelvic pain that woke her up this morning. Describes it as sharp, constant, non-radiating. Worse with any movement, not improved by "minol" or a hot shower. States she had intercourse last night. LMP 8 days prior, bleeding for 5 days, regular cycles. , both by . Denies history of STI. Sexually active with one male partner. Denies GI, , job placement counselor, or systemic symptoms. PMH/PSH: as above meds: none allergies: none ETOH/alc/drugs: denies ROS GENERAL/CONSTITUTIONAL: No fever or chills. No weakness. HEAD, EYES, EARS, NOSE AND THROAT: No change in vision. No ear pain or discharge. No sore throat. CARDIOVASCULAR: No chest pain or shortness of breath RESPIRATORY: No cough, wheezing, or hemoptysis. GASTROINTESTINAL: Abdominal/pelvic pain. No nausea, vomiting, diarrhea or constipation. GENITOURINARY: No dysuria, frequency, or change in urination. MUSCULOSKELETAL: No joint or muscle swelling or pain. No neck or back pain. SKIN: No rash NEUROLOGIC: No headache, vertigo, loss of consciousness, or change in strength/sensation. ENDOCRINE: No increased thirst. No abnormal weight change HEMATOLOGIC/LYMPHATIC: No anemia, easy bleeding, or history of blood clots. ALLERGIC/IMMUNOLOGIC: No hives or skin allergy. PE GENERAL: Awake, alert, and fully oriented, in acute distress, lying flat on her back, tearfully in pain HEAD: No signs of trauma, normocephalic, atraumatic EYES: PERRLA, EOMI, sclera anicteric, conjunctiva clear ENT: Auricles normal inspection, hearing grossly normal, nares patent, oropharynx clear without exudates. Moist mucosa NECK: Normal ROM, supple, no lymphadenopathy, JVD, or masses LUNGS: No distress, speaks full sentences, clear to auscultation bilaterally HEART: Regular rate and rhythm, normal S1 and S2, no murmurs, rubs or gallops, peripheral pulses normal and equal bilaterally. ABDOMEN: Soft, tender in RLQ with guarding and rebound. normoactive bowel sounds EXTREMITIES : Normal inspection, Normal range of motion, no edema. No clubbing or cyanosis. NEUROLOGICAL: Cranial nerves II through XII grossly intact. Normal speech, no focal sensorimotor deficits SKIN: Warm, Dry, normal turgor, no rashes or lesions noted Pelvic Exam: no lesions, bleeding or discharge. Cervix poorly visualized. suprapubic tenderness on bimanual exam. no adnexal tenderness Vital Signs Temp Pulse Resp BP Pulse Ox 98.7 F 75 22 H 116/67 100 11/18/19 07:48 11/18/19 07:48 11/18/19 07:48 11/18/19 07:48 11/18/19 07:48 24yo F with a PMH of recurrent hidradenitis suppurativa p/w with one hour of acute right lower abdominal/pelvic pain that woke her up this morning. Vitals reassuring. Exam notable for RLQ and suprapubic tenderness. Differential includes ovarian torsion, ovarian cyst, ectopic appendicitis. -CBC, CMP, lipase, UA/UC, U-preg -1000mcg of fentanyl -transvaginal ultrasound 11/18/19 10:05 Positive test. Quant 128.9. TVUS read pending. 11/18/19 11:[address] Pichardo who will see the patient. T&S, coags She was given hydromorphone 2mg IV x2 and began vomiting. No blood. Given 10mg reglan. Still vomiting, so given 4mg zofran. 11/18/19 13:14 TVUS showed: 1. No sonographic evidence of a viable intrauterine gestation. 2. Complex right adnexal mass with free pelvic fluid. This is suspicious for an ectopic Discussed case with Dr. Pichardo who accepted the patient for admission. He stated it is unlikely to be a ruptured ectopic given the low hHG and the timing. she is stable and not actively bleeding, he recommended we admit her to his service for observation and a repeat hCG tomorrow. Past History - Medical History Allergies/Adverse Reactions: Allergies Allergy/AdvReac Type Severity Reaction Status Date / Time No Known Allergies Allergy Verified 11/10/19 01:38 Home Medications: Ambulatory Orders NK [No Known Home Medication] 11/18/19 Asthma: No Cancer: No Cardiac Disorders: No COPD: No Diabetes: No HTN: No Seizures: No Thyroid Disease: No - Reproductive History Is Patient Now?: No - Immunization History Immunization Up to Date: Yes - Psycho-Social/Smoking History Smoking History: Never smoked Have you smoked in the past 12 months: No Number of Cigarettes Smoked Daily: 4 Information on smoking cessation initiated: No 'Breaking Loose' booklet given: 04/16/19 - Substance Abuse Hx (Audit-C & DAST Scrn) How often the patient has a drink containing alcohol: Never Score: In Men: 4 or > Positive; In Women: 3 or > Positive: 0 Screen Result (Pos requires Nsg. Audit-10AR): Negative In the last yr the pt used illegal drug/Rx for NonMed reason: No Score: Yes response is considered Positive: 0 Screen Result (Positive result requires Nsg. DAST-10): Negative *Physical Exam - Vital Signs Last Vital Signs Temp Pulse Resp BP Pulse Ox 98.7 F 75 22 H 116/67 100 11/18/19 07:48 11/18/19 07:48 11/18/19 07:48 11/18/19 07:48 11/18/19 07:48 ED Treatment Course - LABORATORY CBC & Chemistry Diagram: 11/18/19 08:10 11/18/19 08:10 - Medications Given in the ED: ED Medications Discontinued Medications Generic Name Dose Route Start Last Admin Trade Name Anuragq PRN Reason Stop Dose Admin Fentanyl 75 mcg 11/18/19 08:09 11/18/19 08:25 Sublimaze Injection - IVPUSH 11/18/19 08:10 75 mcg ONCE ONE Administration Lactated Ringer's 1,000 ml 11/18/19 08:09 11/18/19 08:25 Lactated Ringers Solution IV 11/18/19 08:10 1,000 ml ONCE ONE Administration Discharge - Discharge Information Problems reviewed: Yes Clinical Impression/Diagnosis: Adnexal mass Ectopic Qualifiers: Location of ectopic : ovarian Intrauterine status: without intrauterine Laterality: right Qualified Code(s): O00.201 - Right ovarian without intrauterine Condition: Fair - Admission Yes - Follow up/Referral - Patient Discharge Instructions - Post Discharge Activity
[2019-11-18] MEDS ORDERED: HYDROmorphone HCL CARPU-JECT 2 MG/1 ML DISP.SYRIN IVPUSH ONE ×2 (08:49→10:35)
[2019-11-18 08:50] LABS: BASO % 0.6 % (0-2.0); EOS % 1.4 % (0-4.5); HEMATOCRIT 41.2 % (32.4-45.2); HEMOGLOBIN 13.3 GM/dL (10.7-15.3); MCHC 32.2 g/dl (32.0-36.0); MEAN CELL VOLUME 80.7 fl (80-96); MEAN PLT VOLUME 9.6 fl (7.5-11.1); PLATELET COUNT 269 K/MM3 (134-434); RDW 14.3 % (11.6-15.6); WHITE BLOOD COUNT 12.5 K/mm3 (4.0-10.0)
[2019-11-18] MEDS ORDERED: HYDROmorphone HCl 2 MG/ML VIAL ONE ×2 (08:50→10:37)
--- NOTE | 2019-11-18 08:53 | PDOC ---
Attending Attestation - Resident Resident Name: Duarte Gallegos - ED Attending Attestation I have performed the following: I have examined & evaluated the patient, The case was reviewed & discussed with the resident, I agree w/resident's findings & plan - HPI HPI: 11/18/19 08:47 24yo F with a PMH of recurrent hidradenitis suppurativa, prior C section presenting with sudden onset right sided pelvic pain beginning 1 hour ago. LMP 8 days ago, x 5 day cycle and has had neg preg test x 2 weeks. admits to being sexually active, had intercourse last night. no f/c, n/v/d, urinary sx or vb.. - Physicial Exam PE: 11/18/19 08:53 Agree with the resident's HPI and PE as documented in the electronic medical record. In moderate distress secondary to the pain, crying EOMI, PERRL, nl conjunctiva, anicteric; neck supple. lungs clear, RRR, abdomen soft with +guarding, right lower quadrant and pelvic tenderness, colicky. Back nontender. PATRICIO x4, no focal neuro deficits. No peripheral edema. normal color for ethnicity, WWP. 11/18/19 10:11 - Medical Decision Making 11/18/19 08:53 Vital Signs Temp Pulse Resp BP Pulse Ox 98.7 F 75 22 H 116/67 100 11/18/19 07:48 11/18/19 07:48 11/18/19 07:48 11/18/19 07:48 11/18/19 07:48 DDx female abdominal pain: ovarian cyst, ovarian torsion, ruptured ectopic, TOA, appy, UTI, pyelonephritis, STD/PID, Mittelschmerz, anemia, electrolyte/metabolic derangements, ruptured cyst, hemoperitoneum. vitals reviewed, wnl, reassuring. prior txs with rh positive status no rhogam needed labs and lytes with mild leukocytosis, otherwise unremarkable. analgesia, reassess pelvic exam with suprapubic Tenderness/right adnexal tenderness; otherwise no cmt or bleeding. os closed - chaperoned resident exam TVUS to eval for torsion/ruptured cyst vs ruptured ectopic 11/18/19 11:00 preg test is positive beta hcg 130 bedside pocus fast with small/trace FF in pelvis, otherwise no FF in RUQ/LUQ or SX views TVUS with complex right adnexal mass, +small FF noted, concern for ruptured ectopic until proven otherwise as pt with +preg test and no IUP visualized. pain control with dilaudid with improvement, has required fentanyl initially x1 and dilaudid 1mg x2. npo, IVF covid swab 11/18/19 11:[address] Pichardo to come evaluate, for suspected ectopic 11/18/19 13:11 admit to observation, serial H/H and abdominal exams, reassessment, close monitoring to Dr Pichardo's service. 11/18/19 13:12 Discharge - Discharge Information Problems reviewed: Yes Clinical Impression/Diagnosis: Adnexal mass Ectopic Qualifiers: Location of ectopic : ovarian Intrauterine status: without intrauterine Laterality: right Qualified Code(s): O00.201 - Right ovarian without intrauterine Condition: Fair - Admission Yes - Follow up/Referral - Patient Discharge Instructions - Post Discharge Activity
[2019-11-18 09:45] LABS: ALBUMIN 3.7 g/dl (3.4-5.0); BILIRUBIN,TOTAL 0.7 mg/dL (0.2-1); BLOOD UREA NITROGEN 12.5 mg/dL (7-18); CREATININE 0.7 mg/dL (0.55-1.3); POTASSIUM 3.9 mmol/L (3.5-5.1); TOT PROT 7.4 g/dl (6.4-8.2)
[2019-11-18] MEDS ORDERED: METOCLOPRAMIDE HCL INJECTION 10 MG/2 ML VIAL IVPUSH ONE (11:00)
[2019-11-18] MEDS ORDERED: METOCLOPRAMIDE HCL INJECTION 10 MG/2 ML VIAL ONE (11:02)
[2019-11-18] MEDS ORDERED: ONDANSETRON 4 MG/2 ML VIAL IVPUSH ONE (11:28)
[2019-11-18 12:25] LABS: INR 1.03 (0.83-1.09); PROTHROMBIN TIME (PATIENT) 12.1 SEC (9.7-13.0)
[2019-11-18] MEDS ORDERED: ACETAMINOPHEN 1000 MG/100 ML VIAL (NON FORMULARY) IVPB ONE (13:23)
[2019-11-18] MEDS ORDERED: ACETAMINOPHEN INJECTION 100 ML IVPB ONE (13:28)
--- NOTE | 2019-11-18 13:28 | HP ---
Past Medical History - Primary Care Physician PCP:: Chava Aleman - Admission Chief Complaint: RLQ pain , r/o ectopic History of Present Illness: 24 yo f with hx of RLQ pain , acute , with positive test, tvs no iup, systic area rt adenexa area , admitted for r/o ectopic. no dizziness , no shoulder pain History Source: Patient Limitations to Obtaining History: No Limitations - Past Medical History ...: 2 ...Para: 2 Psych: Yes: Bipolar (on no meds) - Past Surgical History Past Surgical History: Yes: Hx Myomectomy: No Hx Transabdominal Cerclage: No - Smoking History Smoking history: Never smoked Have you smoked in the past 12 months: No Aproximately how many cigarettes per day: 4 - Alcohol/Substance Use Hx Alcohol Use: No - Social History History of Recent Travel: No Home Medications - Allergies Allergies/Adverse Reactions: Allergies Allergy/AdvReac Type Severity Reaction Status Date / Time No Known Allergies Allergy Verified 11/10/19 01:38 - Home Medications Home Medications: Ambulatory Orders NK [No Known Home Medication] 11/18/19 Review of Systems - Review of Systems Constitutional: reports: No Symptoms Eyes: reports: No Symptoms HENT: reports: No Symptoms Neck: reports: No Symptoms Cardiovascular: reports: No Symptoms Respiratory: reports: No Symptoms Gastrointestinal: reports: Abdominal Pain Genitourinary: reports: No Symptoms Breasts: reports: No Symptoms Reported Musculoskeletal: reports: No Symptoms Integumentary: reports: No Symptoms Neurological: reports: No Symptoms Endocrine: reports: No Symptoms Hematology/Lymphatic: reports: No Symptoms Psychiatric: reports: 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 Vital Signs: Vital Signs Temperature 98.7 F 11/18/19 07:48 Pulse Rate 75 11/18/19 07:48 Respiratory Rate 22 H 11/18/19 07:48 Blood Pressure 116/67 11/18/19 07:48 O2 Sat by Pulse Oximetry (%) 100 11/18/19 07:48 Constitutional: Yes: Obese Eyes: Yes: WNL, Conjunctiva Clear, EOM Intact HENT: Yes: WNL, Atraumatic, Normocephalic Neck: Yes: WNL, Supple, Trachea Midline Cardiovascular: Yes: WNL, Regular Rate and Rhythm Respiratory: Yes: WNL, Regular, CTA Bilaterally Gastrointestinal: Yes: Normal Bowel Sounds, Soft, Other (RLQ tenderness , no rebound) ...Rectal Exam: Yes: WNL Renal/: Yes: WNL Vaginal Exam: Yes: Normal Cervix: Yes: Normal Uterus: Yes: Normal Adnexa: Normal: Left, Tender: Right Breast(s): Yes: WNL Musculoskeletal: Yes: WNL Extremities: Yes: WNL Integumentary: Yes: WNL Neurological: Yes: WNL, Alert, Oriented ...Motor Strength: WNL Psychiatric: Yes: WNL, Alert, Oriented Labs: CBC, BMP 11/18/19 08:10 11/18/19 08:10 Problem List - Problem (1) RLQ abdominal pain Code(s): R10.31 - RIGHT LOWER QUADRANT PAIN (2) Ectopic Code(s): O00.90 - UNSPECIFIED ECTOPIC WITHOUT INTRAUTERINE Qualifiers: Location of ectopic : tubal Intrauterine status: without intrauterine Laterality: right Qualified Code(s): O00.101 - Right tubal without intrauterine Assessment/Plan admit for serial HCG serial cbc possible laparoscopy case and manaement discussed with patient
[2019-11-18] MEDS ORDERED: ACETAMINOPHEN 1000 MG/100 ML VIAL (NON FORMULARY) IVPB PRN (13:36)
[2019-11-18 14:14] LABS: URINE APPEARANCE Clear; URINE BILIRUBIN Negative (NEGATIVE); URINE COLOR Yellow; URINE GLUCOSE (UA) Negative (NEGATIVE); URINE KETONE Trace (NEGATIVE); URINE LEUK ESTERASE Negative (NEGATIVE); URINE NITRITE Negative (NEGATIVE); URINE PROTEIN Negative (NEGATIVE); URINE UROBILINOGEN 0.2 mg/dL (0.2-1.0)
[2019-11-18] MEDS: DEXTROSE 5%-LACTATED RINGERS 1,000 ML IV SCH ×2 (14:33→17:42)
--- NOTE | 2019-11-18 15:08 | EKG ---
Test Reason : Blood Pressure : / mmHG Vent. Rate : 050 BPM Atrial Rate : 050 BPM P-R Int : 138 ms QRS Dur : 082 ms QT Int : 424 ms P-R-T Axes : 035 007 016 degrees QTc Int : 386 ms SINUS BRADYCARDIA OTHERWISE NORMAL ECG NO PREVIOUS ECGS AVAILABLE Confirmed by Ric Carter MD ([id number]) on 11/18/2019 3:07:31 PM Referred By: Confirmed By:Ric Carter MD
[2019-11-18 16:10] LABS: EPI CELLS 5 /uL (0-25.1); HYALINE CASTS 2 /uL (0-3.1); URINE RBC 40 /uL (0-23.9); URINE WBC 20 /uL (0-25.8)
[2019-11-18 17:38] VITALS: BMI 38.0
[2019-11-18] MEDS ORDERED: MAG HYDROX/AL HYDROX/SIMETH 30 ML UNIT-DOSE CUP PO PRN (20:15)
[2019-11-18] MEDS ORDERED: IBUPROFEN 800 MG/8 ML IJ IVPB ONE ×3 (21:02)
--- NOTE | 2019-11-18 21:06 | PN ---
"Progress Note (short form) - Note Progress Note: Rapid response called at 20:51. Pt in hospital d/t ectopic ; RN reports pt experiencing CP with no SOB; pain 10/10, located in L chest, sudden onset, sharp; a/w feelings of anxiety. Pt was also c/o heartburn earlier today. Rest of ROS neg. VS BP 144/55 | HR 55 | RR 20| O2 sat 100% on RA CV/Chest: RRR, normal s1 s2, nor MRG; moderate tenderness to palpation of L chest Pulm: CTAB Abd: soft nontender nondistended Pelvic exam performed by Dr. Lane. No CMT. No signs indicating ruptured ectopic . EKG notable for sinus bradycardia. CXR ordered. CBC/CMP stat. Quant B-hCG stat (128.9 this morning). Plan discussed with Dr. Lane. IVF put @ 125. Will give IV Motrin and IV Protonix. PO hydration encouraged."
[2019-11-18] MEDS ORDERED: PANTOPRAZOLE SODIUM 40 MG VIAL IVPUSH ONE (21:12)
[2019-11-18 21:16] LABS: BASO % 0.4 % (0-2.0); HEMATOCRIT 37.3 % (32.4-45.2); HEMOGLOBIN 12.1 GM/dL (10.7-15.3); LYMPH % 20.9 % (8-40); MCH 26.4 pg (25.7-33.7); MCHC 32.4 g/dl (32.0-36.0); MEAN CELL VOLUME 81.4 fl (80-96); MEAN PLT VOLUME 9.8 fl (7.5-11.1); MONO % 7.2 % (3.8-10.2); NEUT % 70.5 % (42.8-82.8); PLATELET COUNT 219 K/MM3 (134-434); RBC 4.59 M/mm3 (3.60-5.2); RDW 14.1 % (11.6-15.6); WHITE BLOOD COUNT 9.6 K/mm3 (4.0-10.0)
--- NOTE | 2019-11-18 21:25 | PD.OB.PROG ---
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 - Admission Chief Complaint: rapid response called to evaluate chest pain at bedside History of Present Illness: 24 Yo admitted for possible ectopic with co f left sharp chest pain not radiating no abd pain no bleedin no SOB History Source: Patient Limitations to Obtaining History: No Limitations - Nursing Documentation Nursing Documentation Reviewed: Yes - Past Medical History ...: 2 ...Para: 2 - Past Surgical History Past Surgical History: Yes: - Smoking History Smoking history: Never smoked Have you smoked in the past 12 months: No Aproximately how many cigarettes per day: 4 - Alcohol/Substance Use Hx Alcohol Use: No - Social History History of Recent Travel: No Physical Exam - Obstetrical Vital Signs: Vital Signs Temperature 98.9 F 11/18/19 17:20 Pulse Rate 51 L 11/18/19 17:20 Respiratory Rate 18 11/18/19 17:20 Blood Pressure 120/70 11/18/19 17:20 O2 Sat by Pulse Oximetry (%) 100 11/18/19 16:26 Constitutional: Yes: Anxious Lungs: Clear to auscultation Breast(s): Yes: Other (sharp pain to left chest) - Vaginal Exam/OB Vaginal Bleeding: No (No CMT abd no rebound) - Physical Exam Musculoskeletal: Yes: WNL Extremities: Yes: WNL - Labs Lab Results: CBC, BMP 11/18/19 08:10 Assessment/Plan chest pain - possible costochondritis ro GERD ro ectopic - benign pelvic exam ;low bhcg Plan Ibuprofen [place] chest xray bhcg stat cbc stat
[2019-11-18 21:49] LABS: HEMATOCRIT 37.7 % (32.4-45.2); HEMOGLOBIN 12.4 GM/dL (10.7-15.3); MCH 26.7 pg (25.7-33.7); MCHC 32.8 g/dl (32.0-36.0); MEAN CELL VOLUME 81.3 fl (80-96); MEAN PLT VOLUME 9.4 fl (7.5-11.1); PLATELET COUNT 227 K/MM3 (134-434); RBC 4.64 M/mm3 (3.60-5.2); RDW 13.9 % (11.6-15.6); WHITE BLOOD COUNT 10.3 K/mm3 (4.0-10.0)
[2019-11-18 21:50] LABS: BASO % 0.5 % (0-2.0); EOS % 1.1 % (0-4.5); LYMPH % 21.5 % (8-40); MONO % 7.2 % (3.8-10.2); NEUT % 69.7 % (42.8-82.8)
[2019-11-18 22:17] LABS: ALBUMIN 3.5 g/dl (3.4-5.0); BLOOD UREA NITROGEN 6.2 mg/dL (7-18); CALCIUM 8.7 mg/dL (8.5-10.1); CREATININE 0.6 mg/dL (0.55-1.3); POTASSIUM 3.9 mmol/L (3.5-5.1); TOT PROT 7.1 g/dl (6.4-8.2)
[2019-11-18 22:20] LABS: BILIRUBIN,TOTAL 0.7 mg/dL (0.2-1)
[2019-11-19] MEDS ORDERED: METOCLOPRAMIDE HCL INJECTION 10 MG/2 ML VIAL IVPB ONE (01:30)
[2019-11-19 05:38] VITALS: BP 110/62; PULSE 52; TEMP 98.4
[2019-11-19] MEDS ORDERED: oxyCODONE HCL 5 MG TABLET PO ONE (06:00)
[2019-11-19 08:16] LABS: BASO % 0.4 % (0-2.0); EOS % 0.6 % (0-4.5); HEMATOCRIT 38.3 % (32.4-45.2); HEMOGLOBIN 12.6 GM/dL (10.7-15.3); LYMPH % 16.2 % (8-40); MCH 26.8 pg (25.7-33.7); MCHC 32.9 g/dl (32.0-36.0); MEAN CELL VOLUME 81.3 fl (80-96); MEAN PLT VOLUME 9.9 fl (7.5-11.1); MONO % 6.4 % (3.8-10.2); NEUT % 76.4 % (42.8-82.8); PLATELET COUNT 223 K/MM3 (134-434); RBC 4.71 M/mm3 (3.60-5.2); WHITE BLOOD COUNT 9.1 K/mm3 (4.0-10.0)
--- NOTE | 2019-11-19 08:38 | PN ---
Progress Note (short form) - Note Progress Note: feels much better this am, no dizziness , no vaginal bleeding CBC, BMP 11/19/19 07:19 11/18/19 21:30 abdomen soft, no distension , no cva no guarding, no rebound i Last Vital Signs Temp Pulse Resp BP Pulse Ox 98.4 F 52 L 20 110/62 99 11/19/19 05:37 11/19/19 05:37 11/19/19 05:37 11/19/19 05:37 11/19/19 05:37 impression low level HCG , hcg declining trend H&H stable plan repeat hcg pending if cont to decline , d/c home follow up with HCG in clinic
--- NOTE | 2019-11-19 09:58 | EKG ---
Test Reason : Blood Pressure : / mmHG Vent. Rate : 046 BPM Atrial Rate : 046 BPM P-R Int : 142 ms QRS Dur : 082 ms QT Int : 442 ms P-R-T Axes : 039 031 033 degrees QTc Int : 386 ms SINUS BRADYCARDIA OTHERWISE NORMAL ECG WHEN COMPARED WITH ECG OF 18-NOV-2019 10:51, NO SIGNIFICANT CHANGE WAS FOUND Confirmed by Ric Carter MD ([id number]) on 11/19/2019 9:57:56 AM Referred By: Confirmed By:Ric Carter MD
== END 2019-11-19 09:50 | disposition home or self-care (01) ==
LOC: JER 07:40 → JERBED 11:14 → UNDOADMIN 11:14 → JASUSAT 13:26 → J3W 18:12 → JASUSAT 11-19 09:50
PROVIDERS: ATTEND Obstetrics & Gynecology
PROC: 3E0337Z Introduction of Electrolytic and Water Balance Substance into Peripheral Vein, Percutaneous Approach (ICD-10-PCS; principal; 2019-11-18)
DX: R10.31 Right lower quadrant pain (principal)
CPT/HCPCS: 36415; 71045-TC-FY; 76604; 76705-TC; 76801-TC; 80053; 81003; 83690; 84702; 84703; 85025; 85610; 85730; 87086; 93005; 93010; 93308; 96360; 96361; 99285-25; J0131; U0003

== ENCOUNTER 2020-05-11 11:51 | Emergency (ER) | payer OTHER ==
[2020-05-11 12:03] VITALS: BP 119/49; PULSE 85; TEMP 97.5; BMI 37.2
[2020-05-11] MEDS ORDERED: ONDANSETRON 4 MG/2 ML VIAL IVPUSH ONE (12:28)
[2020-05-11] MEDS ORDERED: SODIUM CHLORIDE 0.9% 500 ML INFUS.BAG IV ONE (12:28)
[2020-05-11] MEDS ORDERED: FAMOTIDINE 20 MG/50 ML IVPB 20 MG/50 ML MG IVPB ONE ×2 (12:28→13:05)
[2020-05-11] MEDS ORDERED: MAG HYDROX/AL HYDROX/SIMETH 30 ML UNIT-DOSE CUP PO ONE (12:29)
[2020-05-11] MEDS ORDERED: ONDANSETRON 4 MG/2 ML VIAL ONE (13:05)
[2020-05-11] MEDS ORDERED: MAG HYDROX/AL HYDROX/SIMETH 30 ML UNIT-DOSE CUP ONE (13:05)
[2020-05-11] MEDS ORDERED: ACETAMINOPHEN 500 MG TABLET (FP) PO ONE (13:19)
[2020-05-11] MEDS ORDERED: ACETAMINOPHEN 500 MG TABLET (FP) ONE (13:20)
[2020-05-11] MEDS ORDERED: ONDANSETRON *ODT* 4 MG TABLET SL ONE (13:22)
[2020-05-11] MEDS ORDERED: ONDANSETRON *ODT* 4 MG TABLET ONE (13:23)
[2020-05-11 13:32] LABS: BASO % 0.5 % (0-2.0); EOS % 0.8 % (0-4.5); HEMATOCRIT 39.7 % (32.4-45.2); HEMOGLOBIN 13.3 GM/dL (10.7-15.3); LYMPH % 16.1 % (8-40); MCH 26.7 pg (25.7-33.7); MCHC 33.5 g/dl (32.0-36.0); MEAN CELL VOLUME 79.8 fl (80-96); MEAN PLT VOLUME 9.4 fl (7.5-11.1); MONO % 7.7 % (3.8-10.2); NEUT % 74.9 % (42.8-82.8); PLATELET COUNT 265 K/MM3 (134-434); RBC 4.98 M/mm3 (3.60-5.2); WHITE BLOOD COUNT 10.6 K/mm3 (4.0-10.0)
[2020-05-11 13:52] LABS: POTASSIUM 4.2 mmol/L (3.5-5.1)
[2020-05-11 13:54] LABS: ALBUMIN 3.8 g/dl (3.4-5.0); BLOOD UREA NITROGEN 8.3 mg/dL (7-18); CALCIUM 9.2 mg/dL (8.5-10.1)
[2020-05-11 13:57] LABS: CREATININE 0.6 mg/dL (0.55-1.3)
[2020-05-11 13:59] LABS: BILIRUBIN,TOTAL 0.7 mg/dL (0.2-1); TOT PROT 7.9 g/dl (6.4-8.2)
== END 2020-05-11 14:26 | disposition left against medical advice (07) ==
LOC: JER 11:51
PROC: 3E033GC Introduction of Other Therapeutic Substance into Peripheral Vein, Percutaneous Approach (ICD-10-PCS; principal; 2020-05-11)
PROC: 3E033GC Introduction of Other Therapeutic Substance into Peripheral Vein, Percutaneous Approach (ICD-10-PCS; 2020-05-11)
DX: R10.13 Epigastric pain (principal)
CPT/HCPCS: 36415; 71046-TC-FY; 80053; 83690; 84703; 85025; 99285-25; Q0162

== ENCOUNTER 2021-05-02 08:26 | Emergency (ER) | payer OTHER ==
[2021-05-02 08:43] VITALS: BP 114/72; PULSE 95; TEMP 97.7; BMI 29.2
[2021-05-02] MEDS ORDERED: LIDOCAINE 5% TOPICAL PATCH TP ONE (08:56)
[2021-05-02] MEDS ORDERED: SODIUM CHLORIDE 1,000 ML IV STA (08:56)
[2021-05-02] MEDS ORDERED: MAG HYDROX/AL HYDROX/SIMETH 30 ML UNIT-DOSE CUP PO ONE (08:56)
[2021-05-02] MEDS ORDERED: FAMOTIDINE 20 MG/50 ML IVPB 20 MG/50 ML MG IVPB ONE ×2 (08:56→09:10)
[2021-05-02] MEDS ORDERED: ONDANSETRON 4 MG/2 ML VIAL IVPUSH ONE (08:56)
[2021-05-02] MEDS ORDERED: MAG HYDROX/AL HYDROX/SIMETH 30 ML UNIT-DOSE CUP ONE (09:10)
[2021-05-02] MEDS ORDERED: LIDOCAINE 5% TOPICAL PATCH ONE (09:10)
[2021-05-02] MEDS ORDERED: ONDANSETRON 4 MG/2 ML VIAL ONE (09:13)
[2021-05-02 10:14] LABS: HCG,QUALITATIVE URINE Positive; PH,URINE 6.5 (5.0-8.0); URINE APPEARANCE CLEAR; URINE BILIRUBIN NEGATIVE (NEGATIVE); URINE COLOR YELLOW; URINE GLUCOSE (UA) NEGATIVE (NEGATIVE); URINE KETONE NEGATIVE (NEGATIVE); URINE LEUK ESTERASE NEGATIVE (NEGATIVE); URINE NITRITE NEGATIVE (NEGATIVE); URINE PROTEIN TRACE (NEGATIVE)
[2021-05-02] MEDS ORDERED: ACETAMINOPHEN 1000 MG/100 ML BAG IVPB ONE (10:39)
[2021-05-02] MEDS ORDERED: ACETAMINOPHEN INJECTION 100 ML IVPB ONE (10:45)
[2021-05-02 10:55] LABS: BASO % 0.3 % (0-2.0); EOS % 0.7 % (0-4.5); HEMATOCRIT 38.1 % (32.4-45.2); HEMOGLOBIN 12.5 GM/dL (10.7-15.3); LYMPH % 17.4 % (8-40); MCH 26.3 pg (25.7-33.7); MCHC 32.8 g/dl (32.0-36.0); MEAN CELL VOLUME 80.1 fl (80-96); NEUT % 76.6 % (42.8-82.8); PLATELET COUNT 240 10^3/uL (134-434); RBC 4.75 M/mm3 (3.60-5.2); RDW 14.7 % (11.6-15.6)
[2021-05-02] MEDS ORDERED: METOCLOPRAMIDE HCL INJECTION 10 MG/2 ML VIAL IVPB ONE (10:55)
[2021-05-02 11:17] LABS: ALBUMIN 3.3 g/dl (3.4-5.0); BLOOD UREA NITROGEN 7.1 mg/dL (7-18); CALCIUM 8.9 mg/dL (8.5-10.1)
[2021-05-02 11:20] LABS: CREATININE 0.4 mg/dL (0.55-1.3)
[2021-05-02 11:22] LABS: BILIRUBIN,TOTAL 0.2 mg/dL (0.2-1); TOT PROT 7.4 g/dl (6.4-8.2)
[2021-05-02] MEDS ORDERED: METOCLOPRAMIDE HCL INJECTION 10 MG/2 ML VIAL ONE (11:36)
== END 2021-05-02 15:05 | disposition home or self-care (01) ==
LOC: JER 08:26
PROC: 3E0333Z Introduction of Anti-inflammatory into Peripheral Vein, Percutaneous Approach (ICD-10-PCS; principal; 2021-05-02)
PROC: 3E033GC Introduction of Other Therapeutic Substance into Peripheral Vein, Percutaneous Approach (ICD-10-PCS; 2021-05-02)
PROC: 3E033GC Introduction of Other Therapeutic Substance into Peripheral Vein, Percutaneous Approach (ICD-10-PCS; 2021-05-02)
PROC: 3E033GC Introduction of Other Therapeutic Substance into Peripheral Vein, Percutaneous Approach (ICD-10-PCS; 2021-05-02)
PROC: 3E033GC Introduction of Other Therapeutic Substance into Peripheral Vein, Percutaneous Approach (ICD-10-PCS; 2021-05-02)
PROC: 3E0337Z Introduction of Electrolytic and Water Balance Substance into Peripheral Vein, Percutaneous Approach (ICD-10-PCS; 2021-05-02)
DX: O99.612 Diseases of the digestive system complicating pregnancy, second trimester (principal); K21.9 Gastro-esophageal reflux disease without esophagitis; Z3A.14 14 weeks gestation of pregnancy
CPT/HCPCS: 36415; 76817-TC; 80053; 81003; 83690; 84702; 84703; 85025; 87086; 96361; 96374; 96375; 99284-25; J0131

== ENCOUNTER 2021-06-14 08:25 | Emergency (ER) | payer OTHER ==
[2021-06-14 08:42] VITALS: BMI 41.6
[2021-06-14] MEDS ORDERED: CITRIC ACID/SODIUM CITRATE 30 ML UNIT-DOSE CUP PO ONE (09:26)
[2021-06-14 09:38] VITALS: TEMP 98.2
[2021-06-14 10:31] VITALS: BP 112/63; PULSE 77
== END 2021-06-14 10:15 | disposition home or self-care (01) ==
LOC: JER 08:25
DX: O99.612 Diseases of the digestive system complicating pregnancy, second trimester (principal); K29.70 Gastritis, unspecified, without bleeding; Z3A.20 20 weeks gestation of pregnancy
CPT/HCPCS: 99283-25

== ENCOUNTER 2021-07-04 10:38 | Emergency (ER) | payer OTHER ==
[2021-07-04 10:55] VITALS: BMI 37.2
[2021-07-04] MEDS ORDERED: FAMOTIDINE 20 MG TABLET PO ONE (11:55)
[2021-07-04 12:14] VITALS: BP 130/59; PULSE 84; TEMP 97.8
[2021-07-04] MEDS ORDERED: FAMOTIDINE 20 MG/50 ML IVPB 20 MG/50 ML MG IVPB ONE (13:18)
[2021-07-04] MEDS ORDERED: METOCLOPRAMIDE HCL INJECTION 10 MG/2 ML VIAL IVPUSH ONE (13:18)
[2021-07-04] MEDS ORDERED: ACETAMINOPHEN 1000 MG/100 ML BAG IVPB ONE (13:18)
[2021-07-04] MEDS ORDERED: SODIUM CHLORIDE 1,000 ML IV STA (13:18)
[2021-07-04] MEDS ORDERED: METOCLOPRAMIDE HCL INJECTION 10 MG/2 ML VIAL ONE (13:21)
[2021-07-04] MEDS ORDERED: ACETAMINOPHEN INJECTION 100 ML IVPB ONE (13:21)
[2021-07-04 13:57] LABS: BASO % 0.2 % (0-2.0); EOS % 0.8 % (0-4.5); HEMATOCRIT 35.7 % (32.4-45.2); HEMOGLOBIN 11.7 GM/dL (10.7-15.3); LYMPH % 13.9 % (8-40); MCH 26.6 pg (25.7-33.7); MCHC 32.9 g/dl (32.0-36.0); MEAN CELL VOLUME 81.1 fl (80-96); MEAN PLT VOLUME 9.3 fl (7.5-11.1); NEUT % 79.1 % (42.8-82.8); PLATELET COUNT 238 10^3/uL (134-434); RBC 4.41 M/mm3 (3.60-5.2); RDW 13.7 % (11.6-15.6); WHITE BLOOD COUNT 13.3 K/mm3 (4.0-10.0)
[2021-07-04 14:16] LABS: CHLORIDE 106 mmol/L (98-107); SODIUM 138 mmol/L (136-145)
[2021-07-04] MEDS ORDERED: ONDANSETRON 4 MG/2 ML VIAL IVPUSH ONE (14:17)
[2021-07-04 14:18] LABS: ALBUMIN 3.2 g/dl (3.4-5.0); ANION GAP 8 MMOL/L (8-16); CALCIUM 9.3 mg/dL (8.5-10.1); CO2 24 mmol/L (21-32); GLUCOSE,RANDOM 78 mg/dL (74-106)
[2021-07-04 14:21] LABS: CREATININE 0.4 mg/dL (0.55-1.3); SGPT/ALT 21 U/L (13-61)
[2021-07-04 14:22] LABS: SGOT/AST 13 U/L (15-37)
[2021-07-04 14:23] LABS: BILIRUBIN,TOTAL 0.2 mg/dL (0.2-1); TOT PROT 7.2 g/dl (6.4-8.2)
[2021-07-04 14:24] LABS: ALK PHOS 95 U/L (45-117)
[2021-07-04 14:31] LABS: BLOOD UREA NITROGEN 2.8 mg/dL (7-18)
[2021-07-05 09:18] LABS: AMYLASE 60 U/L (25-115); LIPASE 83 U/L (73-393)
== END 2021-07-04 15:18 | disposition left against medical advice (07) ==
LOC: JER 10:38
PROC: 3E0333Z Introduction of Anti-inflammatory into Peripheral Vein, Percutaneous Approach (ICD-10-PCS; principal; 2021-07-04)
PROC: 3E033GC Introduction of Other Therapeutic Substance into Peripheral Vein, Percutaneous Approach (ICD-10-PCS; 2021-07-04)
PROC: 3E033GC Introduction of Other Therapeutic Substance into Peripheral Vein, Percutaneous Approach (ICD-10-PCS; 2021-07-04)
PROC: 3E0337Z Introduction of Electrolytic and Water Balance Substance into Peripheral Vein, Percutaneous Approach (ICD-10-PCS; 2021-07-04)
DX: O26.892 Other specified pregnancy related conditions, second trimester (principal); O99.612 Diseases of the digestive system complicating pregnancy, second trimester; R10.13 Epigastric pain; K21.9 Gastro-esophageal reflux disease without esophagitis; Z3A.20 20 weeks gestation of pregnancy
CPT/HCPCS: 36415; 76815-TC; 80053; 82150; 83690; 85025; 96361; 96374; 96375; 99284-25

== ENCOUNTER 2021-10-21 06:36 | Inpatient (IN) | payer OTHER ==
[2021-10-21] MEDS ORDERED: CITRIC ACID/SODIUM CITRATE 30 ML UNIT-DOSE CUP PO ONE (20:18)
[2021-10-21] MEDS ORDERED: morphine SULFATE/PF 1 MG/2 ML (2cc Syringe - QUVA) ONE (20:24)
[2021-10-21] MEDS ORDERED: morphine SULFATE/PF 1 MG/2 ML (2cc Syringe - QUVA) EP ONE (20:30)
[2021-10-21] MEDS ORDERED: ELECTROLYTE-148 SOLN 1,000 ML IV SCH (20:30)
[2021-10-21] MEDS ORDERED: KETOROLAC TROMETHAMINE 30 MG/1 ML VIAL ONE (20:48)
[2021-10-21] MEDS ORDERED: ONDANSETRON 4 MG/2 ML VIAL ONE ×2 (20:48→23:19)
[2021-10-21] MEDS ORDERED: OXYTOCIN 10 UNITS/ML VIAL ONE (20:48)
[2021-10-21] MEDS ORDERED: ceFAZolin SODIUM 1 GM VIAL ONE (20:48)
[2021-10-21] MEDS ORDERED: PHENYLEPHRINE HCL 10 MG/1 ML SINGLE DOSE VIAL ONE (20:48)
[2021-10-21] MEDS ORDERED: IBUPROFEN 800 MG/8 ML IJ IVPB PRN (21:02)
[2021-10-21] MEDS ORDERED: METHYLERGONOVINE MALEATE 0.2 MG/1 ML AMP IM PRN (21:02)
[2021-10-21] MEDS ORDERED: ePHEDrine SULFATE 50 MG/1 ML AMPULE ONE (21:03)
[2021-10-21] MEDS ORDERED: OXYTOCIN 20 UNITS in 0.9% NS 20 UNIT/1,000 ML INFUS.BAG IV SCH (21:15)
[2021-10-21] MEDS ORDERED: ONDANSETRON 4 MG/2 ML VIAL IVPUSH PRN ×2 (21:16)
[2021-10-21] MEDS ORDERED: ACETAMINOPHEN 1000 MG/100 ML BAG IVPB ONE (21:18)
[2021-10-21] MEDS ORDERED: LACTATED RINGERS SOLUTION 1,000 ML IV SCH (21:30)
[2021-10-21] MEDS ORDERED: OXYTOCIN 20 UNITS in 0.9% NS 20 UNIT/1,000 ML INFUS.BAG IV ONE (22:13)
[2021-10-21 22:44] VITALS: BMI 39.3
[2021-10-22 08:08] LABS: BASO % 0.4 % (0-2.0); EOS % 1.1 % (0-4.5); HEMATOCRIT 32.1 % (32.4-45.2); HEMOGLOBIN 10.5 GM/dL (10.7-15.3); LYMPH % 9.6 % (8-40); MCH 25.6 pg (25.7-33.7); MCHC 32.7 g/dl (32.0-36.0); MEAN CELL VOLUME 78.2 fl (80-96); MEAN PLT VOLUME 10.1 fl (7.5-11.1); MONO % 6.9 % (3.8-10.2); PLATELET COUNT 189 10^3/uL (134-434); RDW 13.5 % (11.6-15.6); WHITE BLOOD COUNT 11.9 K/mm3 (4.0-10.0)
[2021-10-22] MEDS: SIMETHICONE 80 MG TAB.CHEW (FP) PO PRN ×2 (12:29→19:28)
[2021-10-22] MEDS: ACETAMINOPHEN 325 MG TABLET (FP) PO PRN (12:29)
[2021-10-22] MEDS: IBUPROFEN 600 MG TABLET (FP) PO PRN ×2 (15:41→19:28)
[2021-10-22] MEDS ORDERED: BISACODYL 10 MG SUPP.RECT RC PRN (21:02)
[2021-10-23] MEDS: IBUPROFEN 600 MG TABLET (FP) PO PRN ×3 (03:50→22:40)
[2021-10-23] MEDS: SIMETHICONE 80 MG TAB.CHEW (FP) PO PRN ×4 (03:50→19:24)
[2021-10-23] MEDS: ACETAMINOPHEN 325 MG TABLET (FP) PO PRN ×2 (12:21→23:41)
[2021-10-23] MEDS: oxyCODONE HCL 5 MG TABLET PO PRN ×2 (14:52→19:24)
[2021-10-24] MEDS: oxyCODONE HCL 5 MG TABLET PO PRN (04:51)
[2021-10-24] MEDS: SIMETHICONE 80 MG TAB.CHEW (FP) PO PRN ×2 (04:51→08:44)
[2021-10-24] MEDS: IBUPROFEN 600 MG TABLET (FP) PO PRN (08:43)
[2021-10-24 09:10] LABS: BASO % 0.3 % (0-2.0); EOS % 1.8 % (0-4.5); HEMATOCRIT 32.8 % (32.4-45.2); HEMOGLOBIN 10.9 GM/dL (10.7-15.3); LYMPH % 17.1 % (8-40); MCH 25.9 pg (25.7-33.7); MCHC 33.3 g/dl (32.0-36.0); MEAN CELL VOLUME 77.9 fl (80-96); MEAN PLT VOLUME 9.2 fl (7.5-11.1); MONO % 6.5 % (3.8-10.2); NEUT % 74.3 % (42.8-82.8); PLATELET COUNT 251 10^3/uL (134-434); RBC 4.21 M/mm3 (3.60-5.2); RDW 13.4 % (11.6-15.6); WHITE BLOOD COUNT 10.2 K/mm3 (4.0-10.0)
[2021-10-24 10:44] VITALS: BP 117/69; PULSE 77; RESP 16; TEMP 98.1
== END 2021-10-24 11:45 | disposition home or self-care (01) | DRG 540 ==
LOC: JLDR 06:36 → J3W 23:43
PROVIDERS: ADMIT Obstetrics & Gynecology; ATTEND Obstetrics & Gynecology
PROC: 10D00Z1 Extraction of Products of Conception, Low, Open Approach (ICD-10-PCS; principal; 2021-10-21)
DX: O34.211 Maternal care for low transverse scar from previous cesarean delivery (principal); Z3A.38 38 weeks gestation of pregnancy; Z37.0 Single live birth; Z86.59 Personal history of other mental and behavioral disorders
CPT/HCPCS: 36415; 85025; 88307-TC

== ENCOUNTER 2022-02-25 11:27 | Emergency (ER) | payer OTHER ==
[2022-02-25 11:32] VITALS: BMI 34.3
[2022-02-25] MEDS ORDERED: SODIUM CHLORIDE 1,000 ML IV STA ×2 (11:40→15:38)
[2022-02-25] MEDS ORDERED: MAG HYDROX/AL HYDROX/SIMETH 30 ML UNIT-DOSE CUP PO ONE (13:25)
[2022-02-25] MEDS ORDERED: FAMOTIDINE 20 MG TABLET PO ONE (13:25)
[2022-02-25] MEDS ORDERED: ACETAMINOPHEN 1000 MG/100 ML BAG IVPB ONE (13:35)
[2022-02-25] MEDS ORDERED: ACETAMINOPHEN INJECTION 100 ML IVPB ONE (13:57)
[2022-02-25] MEDS ORDERED: FAMOTIDINE 20 MG TABLET ONE (13:57)
[2022-02-25] MEDS ORDERED: MAG HYDROX/AL HYDROX/SIMETH 30 ML UNIT-DOSE CUP ONE (13:58)
[2022-02-25 14:54] LABS: HEMATOCRIT 37.1 % (32.4-45.2); HEMOGLOBIN 11.8 GM/dL (10.7-15.3); MCH 23.6 pg (25.7-33.7); MCHC 31.8 g/dl (32.0-36.0); MEAN CELL VOLUME 74.2 fl (80-96); MEAN PLT VOLUME 9.4 fl (7.5-11.1); PLATELET COUNT 245 10^3/uL (134-434); RDW 16.6 % (11.6-15.6); WHITE BLOOD COUNT 7.7 K/mm3 (4.0-10.0)
[2022-02-25 14:56] LABS: HCG,QUALITATIVE URINE Positive
[2022-02-25 14:57] LABS: PH,URINE 6.5 (5.0-8.0); URINE APPEARANCE CLEAR; URINE BILIRUBIN NEGATIVE (NEGATIVE); URINE COLOR YELLOW; URINE GLUCOSE (UA) NEGATIVE (NEGATIVE); URINE KETONE NEGATIVE (NEGATIVE); URINE LEUK ESTERASE NEGATIVE (NEGATIVE); URINE NITRITE NEGATIVE (NEGATIVE); URINE PROTEIN NEGATIVE (NEGATIVE); URINE UROBILINOGEN 0.2 mg/dL (0.2-1.0)
[2022-02-25 14:59] LABS: BLOOD UREA NITROGEN 6.4 mg/dL (7-18); CALCIUM 8.6 mg/dL (8.5-10.1)
[2022-02-25 15:00] LABS: ALBUMIN 3.5 g/dl (3.4-5.0)
[2022-02-25 15:04] LABS: BILIRUBIN,TOTAL 0.2 mg/dL (0.2-1); TOT PROT 7.2 g/dl (6.4-8.2)
[2022-02-25 15:06] LABS: CREATININE 0.6 mg/dL (0.55-1.3)
[2022-02-25] MEDS ORDERED: ONDANSETRON 4 MG/2 ML VIAL IVPUSH ONE (15:28)
[2022-02-25] MEDS ORDERED: ONDANSETRON 4 MG/2 ML VIAL ONE (15:35)
[2022-02-25] MEDS ORDERED: morphine CARPU-JECT 4 MG/1 ML DISP.SYRIN IVPUSH ONE (16:45)
[2022-02-25 18:10] VITALS: BP 116/74; PULSE 83; RESP 18; TEMP 98.8
== END 2022-02-25 18:43 | disposition home or self-care (01) ==
LOC: JER 11:27
PROC: 3E0333Z Introduction of Anti-inflammatory into Peripheral Vein, Percutaneous Approach (ICD-10-PCS; principal; 2022-02-25)
PROC: 3E033NZ Introduction of Analgesics, Hypnotics, Sedatives into Peripheral Vein, Percutaneous Approach (ICD-10-PCS; 2022-02-25)
PROC: 3E033GC Introduction of Other Therapeutic Substance into Peripheral Vein, Percutaneous Approach (ICD-10-PCS; 2022-02-25)
PROC: 3E0337Z Introduction of Electrolytic and Water Balance Substance into Peripheral Vein, Percutaneous Approach (ICD-10-PCS; 2022-02-25)
DX: O99.511 Diseases of the respiratory system complicating pregnancy, first trimester (principal); O26.891 Other specified pregnancy related conditions, first trimester; U07.1 COVID-19; R10.13 Epigastric pain; R11.2 Nausea with vomiting, unspecified; Z3A.01 Less than 8 weeks gestation of pregnancy
CPT/HCPCS: 36415; 76705-TC; 76801-TC; 80053; 81003; 83690; 84484; 84702; 84703; 85027; 99285-25; C9803-CS; U0003; U0005

== ENCOUNTER 2022-07-06 22:05 | Emergency (ER) | payer OTHER ==
[2022-07-06 22:13] VITALS: BP 112/71; PULSE 103; RESP 20; TEMP 98.6; BMI 31.8
[2022-07-06] MEDS ORDERED: ACETAMINOPHEN 500 MG TABLET (FP) PO ONE (23:01)
[2022-07-06] MEDS ORDERED: ACETAMINOPHEN 325 MG TABLET (FP) ONE (23:17)
[2022-07-06 23:44] LABS: THROAT:GRP A STREP NOT DETECTED (NOTDETECTED)
[2022-07-06] MEDS ORDERED: MAG HYDROX/AL HYDROX/SIMETH 30 ML UNIT-DOSE CUP PO ONE (23:49)
[2022-07-06] MEDS ORDERED: FAMOTIDINE 20 MG TABLET PO ONE (23:49)
[2022-07-06] MEDS ORDERED: SUCRALFATE 1 GM TABLET (FP) PO ONE (23:51)
[2022-07-07] MEDS ORDERED: SUCRALFATE 1 GM TABLET (FP) ONE (00:09)
[2022-07-07] MEDS ORDERED: MAG HYDROX/AL HYDROX/SIMETH 30 ML UNIT-DOSE CUP ONE (00:09)
[2022-07-07] MEDS ORDERED: FAMOTIDINE 20 MG TABLET ONE (00:09)
[2022-07-07] MEDS ORDERED: ONDANSETRON 4 MG/2 ML VIAL IVPUSH ONE (01:20)
[2022-07-07] MEDS ORDERED: LACTATED RINGERS SOLUTION 1000 ML INFUS.BAG IV ONE (01:22)
[2022-07-07] MEDS ORDERED: ONDANSETRON 4 MG/2 ML VIAL ONE (01:38)
[2022-07-07 02:19] LABS: BASO % 0.5 % (0-2.0); EOS % 0.8 % (0-4.5); HEMATOCRIT 32.8 % (32.4-45.2); LYMPH % 12.6 % (8-40); MCH 25.6 pg (25.7-33.7); MCHC 33.5 g/dl (32.0-36.0); MEAN CELL VOLUME 76.4 fl (80-96); MEAN PLT VOLUME 9.8 fl (7.5-11.1); MONO % 8.3 % (3.8-10.2); NEUT % 77.8 % (42.8-82.8); PLATELET COUNT 218 10^3/uL (134-434); RDW 14.8 % (11.6-15.6); WHITE BLOOD COUNT 13.4 K/mm3 (4.0-10.0)
[2022-07-07 02:40] LABS: INR 1.08 (0.83-1.09); PROTHROMBIN TIME (PATIENT) 12.5 SEC (9.7-13.0)
[2022-07-07 02:43] LABS: ACTIVATED PTT 30.1 SECONDS (25.2-36.5)
[2022-07-07 02:50] LABS: CALCIUM 8.4 mg/dL (8.5-10.1)
[2022-07-07 02:51] LABS: ALBUMIN 2.7 g/dl (3.4-5.0); BLOOD UREA NITROGEN 7.6 mg/dL (7-18)
[2022-07-07 02:54] LABS: CREATININE 0.4 mg/dL (0.55-1.3)
[2022-07-07 02:55] LABS: BILIRUBIN,TOTAL 0.2 mg/dL (0.2-1); TOT PROT 7.1 g/dl (6.4-8.2)
== END 2022-07-07 04:05 | disposition home or self-care (01) ==
LOC: JER 22:05
PROC: 3E033GC Introduction of Other Therapeutic Substance into Peripheral Vein, Percutaneous Approach (ICD-10-PCS; principal; 2022-07-07)
DX: O99.512 Diseases of the respiratory system complicating pregnancy, second trimester (principal); J02.9 Acute pharyngitis, unspecified; O99.612 Diseases of the digestive system complicating pregnancy, second trimester; K21.9 Gastro-esophageal reflux disease without esophagitis; Z3A.16 16 weeks gestation of pregnancy; Z20.822 Contact with and (suspected) exposure to COVID-19
CPT/HCPCS: 0241U-QW; 36415; 71046-TC-FY; 80053; 83690; 84484; 84702; 85025; 85379; 85610; 85730; 87070; 87651; 93005; 93010; 99285-25

== ENCOUNTER 2022-09-18 05:53 | Inpatient (IN) | payer OTHER ==
[2022-09-18] MEDS ORDERED: CITRIC ACID/SODIUM CITRATE 30 ML UNIT-DOSE CUP PO ONE (06:15)
[2022-09-18] MEDS ORDERED: ELECTROLYTE-148 SOLN 1,000 ML IV SCH (06:15)
[2022-09-18] MEDS ORDERED: FENTANYL CITRATE/PF 50 MCG/ML VIAL ONE ×6 (06:33→07:59)
[2022-09-18] MEDS ORDERED: PROPOFOL 20 ML ONE ×2 (06:48→07:15)
[2022-09-18] MEDS ORDERED: LIGASURE IMPACT TP ONE (07:07)
[2022-09-18 07:13] LABS: BASO % 0.3 % (0-2.0); EOS % 0.8 % (0-4.5); HEMATOCRIT 32.4 % (32.4-45.2); HEMOGLOBIN 10.4 GM/dL (10.7-15.3); LYMPH % 18.7 % (8-40); MCH 23.8 pg (25.7-33.7); MCHC 32.2 g/dl (32.0-36.0); MEAN CELL VOLUME 73.9 fl (80-96); MEAN PLT VOLUME 10.3 fl (7.5-11.1); MONO % 6.1 % (3.8-10.2); NEUT % 74.1 % (42.8-82.8); PLATELET COUNT 298 10^3/uL (134-434); RBC 4.38 M/mm3 (3.60-5.2); RDW 14.7 % (11.6-15.6); WHITE BLOOD COUNT 15.6 K/mm3 (4.0-10.0)
[2022-09-18 07:22] LABS: INR 0.99 (0.83-1.09); PROTHROMBIN TIME (PATIENT) 11.5 SEC (9.7-13.0)
[2022-09-18 07:25] LABS: ACTIVATED PTT 27.4 SECONDS (25.2-36.5)
[2022-09-18 07:26] VITALS: BMI 37.2
[2022-09-18 07:31] LABS: BLOOD UREA NITROGEN 11.3 mg/dL (7-18); CALCIUM 8.8 mg/dL (8.5-10.1)
[2022-09-18 07:34] LABS: CREATININE 0.5 mg/dL (0.55-1.3)
[2022-09-18 07:46] LABS: COCAINE, UR NEGATIVE (NEGATIVE); METHADONE, UR NEGATIVE (NEGATIVE); PHENCYCLIDINE,URINE NEGATIVE (NEGATIVE); URINE AMPHETAMINES NEGATIVE (NEGATIVE); URINE BENZODIAZEPINES NEGATIVE (NEGATIVE)
[2022-09-18 07:47] LABS: OPIATES, URI NEGATIVE (NEGATIVE); URINE BARBITURATES NEGATIVE (NEGATIVE)
[2022-09-18] MEDS ORDERED: ONDANSETRON 4 MG/2 ML VIAL ONE (08:10)
[2022-09-18] MEDS ORDERED: HYDROmorphone *PCA* 10MG/50ML DISP.SYRIN PCA SCH ×2 (08:15→09:00)
[2022-09-18] MEDS ORDERED: HYDROmorphone *PCA* 10MG/50ML DISP.SYRIN ONE (08:27)
[2022-09-18] MEDS ORDERED: METHYLERGONOVINE MALEATE 0.2 MG/1 ML AMP IM PRN (08:36)
[2022-09-18] MEDS ORDERED: ACETAMINOPHEN 325 MG TABLET (FP) PO PRN (08:36)
[2022-09-18] MEDS ORDERED: BENZOCAINE 20% 57 GM BOTTLE TP PRN (08:36)
[2022-09-18] MEDS ORDERED: WITCH HAZEL 50% (TUCKS) 40 PAD/JAR PAD TP PRN (08:36)
[2022-09-18] MEDS ORDERED: PROMETHAZINE HCL 25 MG/1 ML VIAL IVPB PRN ×2 (08:50)
[2022-09-18] MEDS ORDERED: DEXAMETHASONE SOD PHOSPHATE 4 MG/1 ML VIAL IVPUSH PRN (08:50)
[2022-09-18] MEDS ORDERED: ONDANSETRON 4 MG/2 ML VIAL IVPUSH PRN ×2 (08:50)
[2022-09-18] MEDS ORDERED: LACTATED RINGERS SOLUTION 1,000 ML IV SCH (09:00)
[2022-09-18] MEDS ORDERED: metroNIDAZOLE 500 MG TABLET PO SCH (10:00)
[2022-09-18] MEDS ORDERED: ACETAMINOPHEN INJECTION 100 ML IVPB ONE (10:06)
[2022-09-18] MEDS: FERROUS SO4 325 MG TABLET (FP) PO SCH ×2 (10:28→21:55)
[2022-09-18] MEDS: ENOXAPARIN NA (PORCINE) 40 MG/0.4 ML DISP.SYRIN SQ SCH (10:28)
[2022-09-18] MEDS ORDERED: ACETAMINOPHEN 1000 MG/100 ML BAG IVPB ONE (10:30)
[2022-09-18] MEDS: OXYTOCIN 20 UNITS in 0.9% NS 20 UNIT/1,000 ML INFUS.BAG IV SCH ×2 (11:32→20:31)
[2022-09-18] MEDS ORDERED: OXYTOCIN 20 UNITS in 0.9% NS 20 UNIT/1,000 ML INFUS.BAG IV ONE (11:33)
[2022-09-18 12:21] LABS: HIV INTERPRETATION NEGATIVE (NEGATIVE)
[2022-09-18] MEDS: metroNIDAZOLE 500 MG TABLET PO SCH ×2 (14:31→21:55)
[2022-09-18] MEDS: SIMETHICONE 80 MG TAB.CHEW (FP) PO PRN ×2 (15:02→19:55)
[2022-09-18] MEDS: oxyCODONE HCL 5 MG TABLET PO PRN (19:57)
[2022-09-18] MEDS ORDERED: oxyCODONE HCL 5 MG TABLET PO PRN (20:36)
[2022-09-18] MEDS ORDERED: morphine SULFATE 4 MG/ML VIAL IVPUSH ONE (21:44)
[2022-09-19] MEDS: oxyCODONE HCL 5 MG TABLET PO PRN ×3 (02:11→23:49)
[2022-09-19] MEDS: SIMETHICONE 80 MG TAB.CHEW (FP) PO PRN ×5 (02:13→20:10)
[2022-09-19] MEDS: IBUPROFEN 600 MG TABLET (FP) PO PRN ×2 (06:34→17:05)
[2022-09-19] MEDS ORDERED: oxyCODONE HCL 5 MG TABLET PO PRN (07:49)
[2022-09-19 07:53] LABS: BASO % 0.2 % (0-2.0); EOS % 0.3 % (0-4.5); HEMATOCRIT 28.1 % (32.4-45.2); HEMOGLOBIN 9.1 GM/dL (10.7-15.3); LYMPH % 6.3 % (8-40); MCH 23.9 pg (25.7-33.7); MCHC 32.4 g/dl (32.0-36.0); MEAN CELL VOLUME 73.8 fl (80-96); MEAN PLT VOLUME 9.6 fl (7.5-11.1); MONO % 4.6 % (3.8-10.2); NEUT % 88.6 % (42.8-82.8); PLATELET COUNT 223 10^3/uL (134-434); RBC 3.81 M/mm3 (3.60-5.2); RDW 14.5 % (11.6-15.6); WHITE BLOOD COUNT 17.2 K/mm3 (4.0-10.0)
[2022-09-19] MEDS ORDERED: BISACODYL 10 MG SUPP.RECT RC PRN (08:36)
[2022-09-19] MEDS ORDERED: IBUPROFEN 800 MG/8 ML IJ IVPB ONE (09:30)
[2022-09-19] MEDS: metroNIDAZOLE 500 MG TABLET PO SCH ×2 (10:40→21:45)
[2022-09-19] MEDS: ENOXAPARIN NA (PORCINE) 40 MG/0.4 ML DISP.SYRIN SQ SCH (10:40)
[2022-09-19] MEDS: FERROUS SO4 325 MG TABLET (FP) PO SCH ×2 (10:40→22:55)
[2022-09-19] MEDS: BACITRACIN ZINC 15 GM TUBE TOPICAL OINTMENT TP SCH ×2 (17:42→21:45)
[2022-09-19] MEDS ORDERED: ACETAMINOPHEN 1000 MG/100 ML BAG IVPB ONE (17:58)
[2022-09-19] MEDS ORDERED: ACETAMINOPHEN 325 MG TABLET (FP) PO SCH (18:15)
[2022-09-19] MEDS ORDERED: IBUPROFEN 600 MG TABLET (FP) PO SCH (18:15)
[2022-09-19 22:58] VITALS: RESP 18
[2022-09-19] MEDS: IBUPROFEN 600 MG TABLET (FP) PO SCH (23:13)
[2022-09-20] MEDS: ACETAMINOPHEN 325 MG TABLET (FP) PO SCH ×4 (02:00→18:12)
[2022-09-20] MEDS: IBUPROFEN 600 MG TABLET (FP) PO SCH ×4 (04:02→22:21)
[2022-09-20] MEDS: SIMETHICONE 80 MG TAB.CHEW (FP) PO PRN ×4 (04:02→21:23)
[2022-09-20] MEDS: oxyCODONE HCL 5 MG TABLET PO PRN (07:05)
[2022-09-20] MEDS: ENOXAPARIN NA (PORCINE) 40 MG/0.4 ML DISP.SYRIN SQ SCH (09:18)
[2022-09-20] MEDS: metroNIDAZOLE 500 MG TABLET PO SCH ×2 (09:19→22:21)
[2022-09-20] MEDS: FERROUS SO4 325 MG TABLET (FP) PO SCH ×2 (09:19→22:20)
[2022-09-20] MEDS: BACITRACIN ZINC 15 GM TUBE TOPICAL OINTMENT TP SCH ×2 (10:11→22:21)
[2022-09-21] MEDS: SIMETHICONE 80 MG TAB.CHEW (FP) PO PRN ×2 (01:50→06:31)
[2022-09-21] MEDS: ACETAMINOPHEN 325 MG TABLET (FP) PO SCH ×2 (01:50→06:31)
[2022-09-21] MEDS: IBUPROFEN 600 MG TABLET (FP) PO SCH (04:53)
[2022-09-21 07:40] LABS: BASO % 0.3 % (0-2.0); EOS % 0.8 % (0-4.5); HEMATOCRIT 27.3 % (32.4-45.2); HEMOGLOBIN 8.7 GM/dL (10.7-15.3); LYMPH % 10.1 % (8-40); MCH 23.6 pg (25.7-33.7); MCHC 31.7 g/dl (32.0-36.0); MEAN CELL VOLUME 74.4 fl (80-96); MEAN PLT VOLUME 9.3 fl (7.5-11.1); MONO % 6.1 % (3.8-10.2); NEUT % 82.7 % (42.8-82.8); PLATELET COUNT 300 10^3/uL (134-434); RBC 3.67 M/mm3 (3.60-5.2); RDW 14.7 % (11.6-15.6); WHITE BLOOD COUNT 11.1 K/mm3 (4.0-10.0)
[2022-09-21 09:53] VITALS: BP 130/82; PULSE 102; TEMP 98.3
[2022-09-21] MEDS: metroNIDAZOLE 500 MG TABLET PO SCH (10:20)
[2022-09-21] MEDS: ENOXAPARIN NA (PORCINE) 40 MG/0.4 ML DISP.SYRIN SQ SCH (10:21)
[2022-09-21] MEDS: FERROUS SO4 325 MG TABLET (FP) PO SCH (10:21)
[2022-09-21] MEDS: BACITRACIN ZINC 15 GM TUBE TOPICAL OINTMENT TP SCH (10:22)
== END 2022-09-21 10:50 | disposition home or self-care (01) | DRG 540 ==
LOC: JLDR 05:53 → J3W 12:22
PROVIDERS: ADMIT Obstetrics & Gynecology; ATTEND Obstetrics & Gynecology
PROC: 10D00Z1 Extraction of Products of Conception, Low, Open Approach (ICD-10-PCS; principal; 2022-09-18)
PROC: 0UL70ZZ Occlusion of Bilateral Fallopian Tubes, Open Approach (ICD-10-PCS; 2022-09-18)
DX: O60.14X0 Preterm labor third trimester with preterm delivery third trimester, not applicable or unspecified (principal); O42.013 Preterm premature rupture of membranes, onset of labor within 24 hours of rupture, third trimester; O34.211 Maternal care for low transverse scar from previous cesarean delivery; Z30.2 Encounter for sterilization; Z3A.36 36 weeks gestation of pregnancy; Z37.0 Single live birth; Z86.59 Personal history of other mental and behavioral disorders
CPT/HCPCS: 36415; 80048; 80307; 85025; 85610; 85730; 86780; 86850; 86900; 86901; 87070; 87205; 87340; 87389; 88302-TC; 88307-TC

== ENCOUNTER 2023-11-03 17:01 | Emergency (ER) | payer OTHER ==
[2023-11-03 17:09] VITALS: BP 110/80; PULSE 110; RESP 20; TEMP 98.6; BMI 29.8
[2023-11-03] MEDS ORDERED: FAMOTIDINE 20 MG/50 ML IVPB 20 MG/50 ML MG IVPB ONE (18:39)
[2023-11-03] MEDS ORDERED: MAG HYDROX/AL HYDROX/SIMETH 30 ML UNIT-DOSE CUP ONE ×2 (18:39→20:09)
[2023-11-03] MEDS ORDERED: ONDANSETRON 4 MG/2 ML VIAL ONE (18:39)
[2023-11-03] MEDS: ONDANSETRON 4 MG/2 ML VIAL IVPUSH ONE (19:13)
[2023-11-03] MEDS: FAMOTIDINE 20 MG/50 ML IVPB 20 MG in PREMIX 50 IVPB ONE (19:13)
[2023-11-03] MEDS: SODIUM CHLORIDE 1,000 ML IV ONE (19:13)
[2023-11-03] MEDS: MAG HYDROX/AL HYDROX/SIMETH -MYLANTA- ORAL SUSPENSION PO ONE (19:13)
[2023-11-03 19:19] LABS: HEMATOCRIT 40.9 % (32.4-45.2); HEMOGLOBIN 13.3 GM/dL (10.7-15.3); MCH 22.1 pg (25.7-33.7); MCHC 32.5 g/dl (32.0-36.0); MEAN CELL VOLUME 68.1 fl (80-96); MEAN PLT VOLUME 9.3 fl (7.5-11.1); RBC 6.01 M/mm3 (3.60-5.2); RDW 17.8 % (11.6-15.6)
[2023-11-03 19:24] LABS: ADD RBC MORPHOLOGY YES
[2023-11-03] MEDS ORDERED: PANTOPRAZOLE SODIUM 40 MG VIAL ONE (19:27)
[2023-11-03] MEDS: PANTOPRAZOLE SODIUM 40 MG VIAL IVPUSH ONE (19:33)
[2023-11-03 19:35] LABS: POTASSIUM 3.7 mmol/L (3.5-5.1)
[2023-11-03 19:38] LABS: ALBUMIN 3.5 g/dl (3.4-5.0); BLOOD UREA NITROGEN 17.6 mg/dL (7-18); CALCIUM 9.3 mg/dL (8.5-10.1)
[2023-11-03 19:41] LABS: CREATININE 0.7 mg/dL (0.55-1.3)
[2023-11-03] MEDS ORDERED: SUCRALFATE 1 GM TABLET (FP) ONE (19:42)
[2023-11-03 19:43] LABS: BILIRUBIN,TOTAL 0.2 mg/dL (0.2-1); TOT PROT 7.9 g/dl (6.4-8.2)
[2023-11-03] MEDS: SUCRALFATE 1 GM/10 ML UNIT DOSE CUPS PO ONE (19:51)
[2023-11-03 20:08] LABS: ANISOCYTOSIS 0; MACROCYTOSIS 0
[2023-11-03 20:09] LABS: PLATELET ESTIMATE ADEQUATE
[2023-11-03 20:10] LABS: PLATELET COUNT 320 10^3/uL (134-434)
[2023-11-03] MEDS: MAG HYDROX/AL HYDROX/SIMETH 30 ML UNIT-DOSE CUP PO ONE (20:18)
[2023-11-03 20:46] LABS: EPI CELLS 27 /uL (0-25.1); HYALINE CASTS 4 /uL (0-3.1); URINE APPEARANCE CLEAR; URINE BACTERIA 133 /uL (0-1359); URINE BILIRUBIN NEGATIVE (NEGATIVE); URINE COLOR YELLOW; URINE GLUCOSE (UA) NEGATIVE (NEGATIVE); URINE KETONE NEGATIVE (NEGATIVE); URINE LEUK ESTERASE NEGATIVE (NEGATIVE); URINE NITRITE NEGATIVE (NEGATIVE); URINE PROTEIN 1+ (NEGATIVE); URINE UROBILINOGEN 0.2 mg/dL (0.2-1.0); URINE WBC 16 /uL (0-25.8)
[2023-11-03 20:47] LABS: HCG,QUALITATIVE URINE Negative
== END 2023-11-03 20:39 | disposition home or self-care (01) ==
LOC: JER 17:01
PROC: 3E033GC Introduction of Other Therapeutic Substance into Peripheral Vein, Percutaneous Approach (ICD-10-PCS; principal; 2023-11-03)
PROC: 3E033GC Introduction of Other Therapeutic Substance into Peripheral Vein, Percutaneous Approach (ICD-10-PCS; 2023-11-03)
PROC: 3E033GC Introduction of Other Therapeutic Substance into Peripheral Vein, Percutaneous Approach (ICD-10-PCS; 2023-11-03)
DX: K21.00 Gastro-esophageal reflux disease with esophagitis, without bleeding (principal); K29.90 Gastroduodenitis, unspecified, without bleeding
CPT/HCPCS: 36415; 80053; 81003; 83690; 84703; 85025; 99284-25